=== PATIENT | male | born 1950 | race Caucasian/White ===

== ENCOUNTER 2017-09-05 15:52 | Inpatient (IN) | payer BC ==
--- NOTE | 2017-09-05 16:53 | RAD ---
INDICATION: Difficulty breathing COMPARISON: Chest x-ray February 04, 2016 TECHNIQUE: Single AP portable view of the chest was obtained. FINDINGS: Image quality is compromised due to the relative inferiority of a portable chest x-ray. There is a left upper chest cardiac pacemaker with a single lead overlying the heart. The heart and mediastinum exhibit normal size and contour. The lungs are grossly clear. There is no evidence of a large pleural effusion. Visualized bones are normal for the patient's age. IMPRESSION: No radiographic evidence for acute cardiopulmonary abnormality on this portable chest x-ray.
[2017-09-05 17:05] LABS: ABS Basophils 0 10^3/ul (0-0.2); ABS Eosinophils 0.1 10^3/ul (0-0.6); ABS Lymphocytes 1.3 10^3/ul (1.0-4.8); ABS Monocytes 0.7 10^3/ul (0-0.8); ABS Neutrophils 5.7 10^3/ul (1.5-7.7); ABS Nucleated RBC 0 10^3/ul; Eosinophil % 0.9 % (0-6); Hematocrit 39 % (42-52); Hemoglobin 13.4 g/dl (14.0-18.0); Lymphocyte % 16.8 % (25-47); Mean Corpuscular HGB Conc 34 g/dl (31-36); Mean Corpuscular Hemoglobin 33 pg (27-31); Mean Corpuscular Volume 96 fL (80-94); Mean Platelet Volume 9.8 um3 (7.4-10.4); Nucleated Red Blood Cells % 0; Platelet Count 165 10^3/ul (150-450); Red Blood Count 4.06 10^6/ul (4.00-5.40); Red Cell Distribution Width 13 % (10.5-15); White Blood Count 7.8 10^3/ul (3.5-10.8)
[2017-09-05 17:28] LABS: EGFR Non-African American 66.4 (>60)
[2017-09-05 17:34] LABS: INR 0.99 (0.77-1.02)
[2017-09-05] MEDS ORDERED: NS 0.9% 1000 ML* 1,000 ML IV ONE (18:13)
[2017-09-05] MEDS ORDERED: Nitroglycerin TAB 0.4 MG* 0.4 MG TAB SL ONE (18:13)
[2017-09-05] MEDS ORDERED: Aspirin 81 mg CHEW TAB* 81 MG TAB.CHEW PO ONE (18:14)
[2017-09-05] MEDS ORDERED: Magnesium Hydroxide LIQ* 30 ML UDC PO PRN (18:38)
[2017-09-05] MEDS ORDERED: Acetaminophen TAB* 325 MG PO PRN (18:38)
[2017-09-05] MEDS ORDERED: Morphine VIAL* 4 MG/ML VIAL (1 ml vial) IV PRN (18:38)
[2017-09-05] MEDS ORDERED: Ondansetron INJ* 2 MG/ML VIAL IV PRN (18:38)
[2017-09-05] MEDS ORDERED: Al Hydrox/Mg Hydrox/Simet LIQ* 30 ML UDC PO PRN (18:38)
[2017-09-05] MEDS ORDERED: Nitroglycerin TAB 0.4 MG* 0.4 MG TAB SL PRN (18:45)
--- NOTE | 2017-09-05 19:48 | ED ---
Fátima Pate Rebecca, scribed for Eli Arevalo MD on 09/05/17 at 1624 . Complex/Multi-Sys Presentation - HPI Summary HPI Summary: Pt is a 67 y/o M BIBA from home who presents to ED with a CC of generalized weakness and dizziness described as feeling near syncopal. Reports that yesterday he was able to mow the lawn without any problems and that he was able to iron shirts and eat lunch as usual. Sx began today when standing up after typing on the computer. Additionally c/o dry mouth, lightheadedness, intermittent bilateral posterior bilateral thigh pain and CP. CP has been intermittent for a few weeks, located in the left anterior chest. Pain is characterized as dull and currently moderate ranked 5-6/10, described as pain you might associate after doing pushups and not deep. LE pain has been intermittent since August 19 (17 days ago) and is present when standing for too long and after walking, but not while walking. Has not mentioned the LE pain to any doctors. Denies SOB. Today, he did not feel the defibrillator going off. PMHx UT (2011) - currently symptoms do not feel like his UT that episode had sharp pain. PSHx cardiac ablation on 07/04/17 for V tach, done at [facility] and he has not had V tach since then per pt. [employer] Development Team Lead is Dr. Allred, last seen on 07/23/17 and he is not on a blood thinner. Vital signs while in room for examination are: HR of 59 bpm, O2 saturation 100 on RA, respiratory rate of 19 and BP of 166/92. - History Of Current Complaint Chief Complaint: EDChestPainROMI Time Seen by Provider: 09/05/17 16:04 Hx Obtained From: Patient Onset/Duration: Gradual Onset, Lasting Hours, Still Present Timing: Intermittent, Lasting:, Minutes Severity Currently: Moderate - 5-6/10 Severity Initially: Moderate Location: Pain At: - Chest and bilateral posterior thigh Character: Dull Aggravating Factor(s): LE pain - standing for extended periods, after walking Alleviating Factor(s): Nothing Associated Signs And Symptoms: Positive: Weakness - Generalized, Chest Pain - Intermittent, Other - Dizziness (near syncopal), dry mouth, lightheadedness. Negative: SOB Related History: Other - cardiac ablation 07/04/17 - Allergies/Home Medications Allergies/Adverse Reactions: Allergies Allergy/AdvReac Type Severity Reaction Status Date / Time No Known Allergies Allergy Verified 09/12/14 21:09 Home Medications: Home Medications Aspirin EC TAB* [Ecotrin EC Low Dose 81 MG*] 81 mg PO DAILY 09/05/17 [History Confirmed 09/05/17] Nitroglycerin TAB 0.4 MG* 0.4 mg SL Q5M PRN 09/05/17 [History Confirmed 09/05/17 ] PMH/Surg Hx/FS Hx/Imm Hx Previously Healthy: No Endocrine/Hematology History: Denies: Hx Anticoagulant Therapy, Hx Blood Transfusions, Hx Diabetes, Hx Anemia Cardiovascular History: Reports: Hx Auto Implanted Cardiovert Defib - ICD 2ND TO V-TACH, Hx Coronary Artery Disease, Hx Hypercholesterolemia, Hx Hypertension , Hx Myocardial Infarction, Hx Pacemaker/ICD, Hx Syncope, Other Cardiovascular Problems/Disorders - ERECTILE DYSFUNCTION Denies: Hx Angina, Hx Angioplasty, Hx Cardiac Arrest, Hx Cardiomegaly, Hx Congestive Heart Failure, Hx Valvular Heart Disease Respiratory History: Reports: Hx Pneumonia - ONCE Denies: Hx Asthma, Hx Chronic Obstructive Pulmonary Disease (COPD) GI History: Reports: Hx Irritable Bowel Denies: Other GI Disorders History: Reports: Hx Benign Prostatic Hyperplasia, Hx Kidney Stones - 2-3 times, last time 2008 Musculoskeletal History: Reports: Hx Tendonitis - wrists, arms at times painful Sensory History: Reports: Hx Contacts or Glasses Opthamlomology History: Reports: Hx Contacts or Glasses Neurological History: Denies: Other Neuro Impairments/Disorders Psychiatric History: Reports: Hx Anxiety Denies: Hx Inpatient Treatment, Hx Suicide Attempt, Hx of Violent Episodes Against Others, Hx Substance Abuse - Cancer History Cancer Type, Location and Year: basal cell ca - Surgical History Surgery Procedure, Year, and Place: Bone tumor removed left pelvis- benign 1972. [place] 2011[place] [facility] [place] [facility] Hx Anesthesia Reactions: No Infectious Disease History: No Infectious Disease History: Denies: Traveled Outside the [place] in Last 30 Days - Family History Known Family History: Positive: Cardiac Disease, Other - Dementia (mother) - Social History Alcohol Use: None Substance Use Type: Reports: None Hx Tobacco Use: Yes Smoking Status (MU): Former Smoker Review of Systems Positive: Other - Generalized weakness Positive: Other - Dry mouth Positive: Chest Pain - Intermittent Respiratory: Negative Gastrointestinal: Negative Positive: Other - Intermittent bilateral posterior thigh pain Skin: Negative Neurological: Other - Dizziness (near syncopal), lightheadedness Psychological: Normal All Other Systems Reviewed And Are Negative: Yes Physical Exam - Summary Physical Exam Summary: Appearance: Ill-appearing, moderate pain distress, well-nourished,bradycardic Skin: Warm, color reflects adequate perfusion, dry Head: Normal Head/Face inspection, atraumatic Eyes: Conjunctiva clear, PERRL, EOMI, no nystagmus ENT: Normal inspection, oral mucosa dry Neck: Supple, no nodes, no JVD Respiratory: Lungs clear, normal breath sounds, no respiratory distress Cardio: bradycardic, No murmur, pulses normal, brisk capillary refill Abdomen: Soft, nontender Bowel sounds: Present Musculoskeletal: Strength Intact/ROM intact, no calf tenderness, no edema. Psychological: Normal Neuro: Alert, muscle tone normal, no focal deficit Triage Information Reviewed: Yes Vital Signs On Initial Exam: Initial Vitals Temp Pulse Resp BP Pulse Ox 98.9 F 58 16 166/92 99 09/05/17 16:02 09/05/17 16:02 09/05/17 16:02 09/05/17 16:02 09/05/17 16:02 Vital Signs Reviewed: Yes Diagnostics - Vital Signs Vital Signs Temp Pulse Resp BP Pulse Ox 09/05/17 16:02 98.9 F 58 16 166/92 99 - Laboratory Result Diagrams: 09/06/17 05:09 09/06/17 05:09 Lab Statement: Any lab studies that have been ordered have been reviewed, and results considered in the medical decision making process. - Radiology CXR Xray Interpretation: No Acute Changes - No radiographic evidence for acute cardiopulmonary abnormality on this portable chest x-ray. ED physician reviewed this report. Radiology Interpretation Completed By: Radiologist - EKG 1614 Cardiac Rate: Bradycardia - 55 bpm EKG Rhythm: Sinus Bradycardia ST Segment: Non-Specific Ectopy: None EKG Interpretation: Nl AVIVCT, nl QTC, left axis -34, Q waves in III and aVF, no acute changes 1804 Cardiac Rate: Bradycardia - 50 bpm EKG Rhythm: Sinus Bradycardia ST Segment: Non-Specific Ectopy: None EKG Interpretation: Nl AVIVCT, nl QTC, neg axis (-30), Q waves in leads II and aVF EKG Comparison: No Significant Change - No change from prior taken this date at 1614 Re-Evaluation - Re-Evaluation First Eval Re-Evaluation Time: 18:06 Change: Worse Comment: Nurse reports that his HR is in the 40s. Second Eval Re-Evaluation Time: 18:08 Change: Worse Comment: Reports CP between 5-6/10, closer to 6/10, slightly more than it was before. Discussed admission which the pt agrees to. Will give 324 mg ASA. Vital signs while in the room are: HR of 55 bpm, O2 saturation of 98 on RA, respiratory rate of 16 and BP of 123/79. Answered questions presented by the sister of his . Complex Multi-Symp Course/Dx Course Of Treatment: Pt with hx inferior wall UT 2011, s/p stents, s/p ICD for v tach, s/p ablation 07/04/17 presents with chest pain, weakness, dizziness. In ED pt is bradycardic into the 40's (is on sotalol at home) and initial troponin is zero. Due to pt's intermittent chest pain and cardiac risk factors including prior UT and V tach, he is admitted for observation for further evaluation. Sagrario Diaz is in with the pt at 1823 and states to hold the ASA. Pt declined the NTG. - Diagnoses Differential Diagnoses/HQI/PQRI: Cardiac Ischemia, Metabolic Abnormality Provider Diagnoses: Chest pain, Generalized weakness, Bilateral leg pain - Physician Notifications Discussed Care Of Patient With: Jessica Otero Time Discussed With Above Provider: 17:55 Instructed by Provider To: Other - Accepts pt for admission. Discussed care of pt with Dr. Jamison at 1910 who says that they will consult, advised no change in treatment and monitoring. Discharge - Sign-Out/Discharge Documenting (check all that apply): Discharge/Admit/Transfer - Admit - Discharge Plan Condition: Good Disposition: ADMITTED TO [facility] - Billing Disposition and Condition Condition: GOOD Disposition: Admitted to [facility] The documentation as recorded by the Fátima cornelius Rebecca accurately reflects the service I personally performed and the decisions made by , Eli Arevalo MD.
[2017-09-05] MEDS: Docusate CAP* 100 MG PO SCH (21:40)
[2017-09-05] MEDS: Heparin VIAL(*) 5000 UNITS/ML VIAL (FIVE THOUSAND) SUBCUT SCH (21:40)
[2017-09-05] MEDS: Atorvastatin* 40 MG TAB PO SCH (21:40)
[2017-09-05] MEDS: NS 0.9% 1000 ML* 1,000 ML IV SCH (22:00)
[2017-09-05 23:09] LABS: Urine Appearance Clear; Urine Blood Negative (Negative); Urine Color Yellow; Urine Ketones Trace (Negative); Urine Protein Negative (Negative); Urine Specific Gravity 1.032 (1.010-1.030); Urine Urobilinogen Negative (Negative)
[2017-09-05] MEDS: Mirtazapine TAB* 15 MG PO PRN (23:15)
[2017-09-05] MEDS: Zolpidem TAB* 10 MG PO PRN (23:16)
--- NOTE | 2017-09-06 03:48 | HP ---
CC: Dr. Gonzalez; Dr. Allred * ADMISSION HISTORY AND PHYSICAL: DATE OF ADMISSION: 09/05/17 PATIENT OF: Jessica Otero DO * (DICTATED BY DERRICK SARABIA) PRIMARY CARE PHYSICIAN: Dr. Gonzalez. PRIMARY TETRYL WRINGER OPERATOR: Dr. Nathanael Allred. CHIEF COMPLAINT: Chest pain. HISTORY OF PRESENT ILLNESS: Mr. Luong is a pleasant 67-year-old gentleman with quite significant past medical history significant for coronary artery disease with a history of OH, angioplasty with stent placement, as well as history of ventricular tachycardia for which he had recent ablation in June of this year. The patient also carries a history of hypertension and hyperlipidemia, who reports that since he had his cardiac ablation at [facility] in June of this year , he intermittently feels some chest tightness. Today, he was pushing a gravel using a shovel in his yard when he developed central mid sternal chest pain radiating to his outer chest. He felt weak and nauseated as well, but denies any palpitation, difficulty breathing, syncope, or diaphoresis. He presented to the emergency room and he had laboratory workup that revealed normal blood count as well as normal chemistry with the exception of slightly elevated BNP; however, his troponin was 0, CK-MB was 2.8, TSH and thyroid studies were normal. He had a D-dimer as well that was normal. Chest x-ray revealing no acute changes and had an EKG that revealed sinus bradycardia; however, there were no significant ST changes. The patient continued to have intermittent chest pain. He was given full dose of aspirin by his [id number] when pain seemed to be worse around 2 o'clock this afternoon. At the time of admission, his pain has significantly improved and he continue to deny any other associated symptoms. Given his worsening intermittent chest pain with his known history of coronary artery disease with previous MIs, we were asked to see the patient for evaluation and to consider admission for observation in telemetry. PAST MEDICAL HISTORY: Significant for coronary artery disease with history of angiography and stent placement. The patient had his last stress test done in January of 2016 that was intermediate risk and he was discharged home after a brief hospital stay. He was recently seen in the office by Dr. Allred after his ablation and has been otherwise in his usual state of health. He also has a history of ventricular tachycardia, hypertension, and hyperlipidemia. PAST SURGICAL HISTORY: Significant for AICD placement. CURRENT MEDICATIONS: His medications at home include: 1. Aspirin 81 mg p.o. daily. 2. Lipitor 40 mg p.o. q.h.s. 3. Cozaar 50 mg p.o. daily. 4. Nadolol 5 mg p.o. daily. 5. Nitroglycerin 0.4 mg sublingual q.5 minutes as needed for chest pain. 6. Spironolactone p.o. daily. ALLERGIES: He has no known drug allergies. FAMILY HISTORY: Negative for early onset coronary artery disease or CVA. SOCIAL HISTORY: The patient is nonsmoker. Denies alcohol intake or illicit drug use. 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 His is healthcare proxy carrier and he is a full code. REVIEW OF SYSTEMS: See HPI. Otherwise, 14 points review of systems were reviewed and were otherwise negative. PHYSICAL EXAMINATION GENERAL: He is a pleasant, healthy-appearing upper middle-aged gentleman, in no acute distress or discomfort at the time of admission. VITAL SIGNS: Revealed heart rate of 59, blood pressure of 145/90, temperature of 98.9, respirations of 20, and O2 sats of 99% on room air. HEENT: Head is normocephalic, atraumatic. Sclerae anicteric. PERRLA. EOMs intact. Oropharynx is pink and moist. NECK: Supple. Trachea midline. No cervical adenopathy, thyromegaly, or JVD. LUNGS: Clear to auscultation bilaterally. HEART: Appears to be slow rate; however, normal rhythm. No murmurs or gallops. BACK: With normal curvature and no CVA tenderness. ABDOMEN: Soft, nontender, and nondistended. No hernias, masses, or hepatosplenomegaly. EXTREMITIES: Without cyanosis, clubbing, or edema. NEUROLOGIC: Grossly intact. RECTAL: Exam deferred at this time. LABORATORY WORKUP: CBC with white count of 7000, hemoglobin of 13.4, hematocrit of 39, and platelets of 165. Chemistry with sodium of 141, potassium 4.3, chloride of 108, CO2 of 26, BUN of 20, and creatinine of 1.1. His glucose of 106. LFTs within normal limits. Troponin was 0 and BNP is 211. ACCESSORY DIAGNOSTIC DATA: Chest x-ray performed earlier with no acute cardiopulmonary findings and his EKG was done upon presentation and then few hours after revealing sinus bradycardia with rate of 50, some old Q waves at the inferior lead with questionable old inferior infarct. IMPRESSION: A 67-year-old gentleman with multiple coronary artery disease risk factors with history of myocardial infarction and stent placement as well as recent ablation due to ventricular tachycardia back in June of this year, who also has a history of hypertension, hyperlipidemia, who presented to the emergency room with intermittent chest tightness that appears to be more producible with movement other than exertion, who will be admitted to telemetry for observation and obtain troponin trends. ASSESSMENT AND PLAN: 1. Chest pain. The patient has multiple risk factors for coronary artery disease. We reviewed his record including last nuclear stress test in January of 2016. He will be admitted to telemetry for close observation overnight and to obtain troponin trends. He appears to be comfortable right now. He took full dose of aspirin and he will have nitroglycerin as needed for chest pain. He appears to be in sinus bradycardia and Dr. Foster in the emergency room is planning to contact Dr. Jamison for further recommendation; however, I will get a Cardiology consult also to determine if the patient needs to have a stress test over the weekend or as an outpatient if he continues to be stable tomorrow with normal troponin and no significant EKG changes. 2. Hypertension. We will continue his beta-lachelle, losartan and spironolactone. 3. Hyperlipidemia. I will check a lipid panel in the morning and we will keep him on his statin. 4. DVT prophylaxis: The patient is a high risk and we will cover with heparin subcu. 5. Code status: He is a full code and healthcare proxy is his . 6. Disposition: Admission to tele for observation and to rule out acute coronary syndrome, continue telemetry observation, aspirin, beta-lachelle, trending troponins, possible exercise non-stress test in the morning with supplemental oxygen and supportive care versus discharge and getting a stress test as an outpatient. TIME SPENT: I spent approximately 60 minutes admitting this patient with more than 50% spent obtaining history and physical exam. I discussed the case with Dr. Otero, who agreed to plans. DERRICK SARABIA [id number]/[facility] #: [id number] GERONIMO
[2017-09-06] MEDS: NS 0.9% 1000 ML* 1,000 ML IV SCH ×2 (04:45→18:03)
[2017-09-06 05:36] LABS: ABS Basophils 0 10^3/ul (0-0.2); ABS Eosinophils 0.1 10^3/ul (0-0.6); ABS Lymphocytes 1.9 10^3/ul (1.0-4.8); ABS Monocytes 0.7 10^3/ul (0-0.8); ABS Neutrophils 3.7 10^3/ul (1.5-7.7); ABS Nucleated RBC 0 10^3/ul; Eosinophil % 1.5 % (0-6); Hematocrit 34 % (42-52); Lymphocyte % 29.8 % (25-47); Mean Corpuscular HGB Conc 35 g/dl (31-36); Mean Corpuscular Hemoglobin 34 pg (27-31); Mean Corpuscular Volume 96 fL (80-94); Mean Platelet Volume 9.6 um3 (7.4-10.4); Nucleated Red Blood Cells % 0.1; Platelet Count 126 10^3/ul (150-450); Red Blood Count 3.57 10^6/ul (4.00-5.40); Red Cell Distribution Width 13 % (10.5-15); White Blood Count 6.4 10^3/ul (3.5-10.8)
[2017-09-06 06:01] LABS: EGFR Non-African American 77.7 (>60)
[2017-09-06] MEDS: Heparin VIAL(*) 5000 UNITS/ML VIAL (FIVE THOUSAND) SUBCUT SCH ×3 (06:02→21:38)
[2017-09-06] MEDS: Losartan TAB* 25 MG PO SCH (08:49)
[2017-09-06] MEDS: Aspirin EC TAB* 81 MG TAB.EC PO SCH (08:50)
[2017-09-06] MEDS: Docusate CAP* 100 MG PO SCH ×2 (08:50→21:38)
[2017-09-06] MEDS: Spironolactone TAB* 25 MG PO SCH (08:50)
[2017-09-06] MEDS ORDERED: Nadolol (NF) 20 MG TAB PO SCH (09:00)
--- NOTE | 2017-09-06 18:39 | PN ---
Subjective Date of Service: 09/06/17 Interval History: . Interviewed and examined patient at bedside; Discussed case with Dr. Jamison; Reviewed previous notes and radiology results; pt's episodes of chest pain/LH not caught by [facility] 2/2 specific settings; these were adjusted by Dr. Jamison. Now, question regarding CAD/ACS exists --> patient wishes to stay for stress test Friday. Family History: Unchanged from Admission Social History: Unchanged from Admission Past Medical History: Unchanged from Admission Objective Active Medications: . Acetaminophen (Tylenol Tab*) 650 mg PO Q4H PRN PRN Reason: FEVER/PAIN Al Hydrox/Mg Hydrox/Simethicone (Maalox Plus*) 30 ml PO Q6H PRN PRN Reason: INDIGESTION Aspirin (Aspirin Ec Tab*) 81 mg PO DAILY [facility] Last Admin: 09/06/17 08:50 Dose: 81 mg Atorvastatin Calcium (Lipitor*) 40 mg PO BEDTIME [facility] Last Admin: 09/05/17 21:40 Dose: 40 mg Docusate Sodium (Colace Cap*) 100 mg PO BID [facility] Last Admin: 09/06/17 08:50 Dose: 100 mg Heparin Sodium (Porcine) (Heparin Vial(*)) 5,000 units SUBCUT Q8HR [facility] Last Admin: 09/06/17 14:10 Dose: 5,000 units Sodium Chloride (Ns 0.9% 1000 Ml*) 1,000 mls @ 125 mls/hr IV PER RATE [facility] Last Admin: 09/06/17 18:03 Dose: 125 mls/hr Losartan Potassium (Cozaar Tab*) 50 mg PO DAILY [facility] Last Admin: 09/06/17 08:49 Dose: 50 mg Magnesium Hydroxide (Milk Of Magnesia Liq*) 30 ml PO Q4H PRN PRN Reason: CONSTIPATION Mirtazapine (Remeron Tab*) 30 mg PO BEDTIME PRN PRN Reason: ANXIETY/INSOMNIA Last Admin: 09/05/17 23:15 Dose: 30 mg Morphine Sulfate (Morphine Vial*) 2 mg IV Q2H PRN PRN Reason: PAIN Nadolol (Nadolol (Nf)) 5 mg PO DAILY [facility] Last Admin: 09/06/17 08:53 Dose: Not Given Nitroglycerin (Nitroglycerin Tab 0.4 Mg*) 0.4 mg SL Q5M PRN PRN Reason: PAIN - CHEST Ondansetron HCl (Zofran Inj*) 4 mg IV Q4H PRN PRN Reason: NAUSEA/VOMITING Spironolactone (Aldactone Tab*) 6.25 mg PO DAILY [facility] Last Admin: 09/06/17 08:50 Dose: 6.25 mg Zolpidem Tartrate (Ambien Tab*) 10 mg PO BEDTIME PRN PRN Reason: INSOMNIA Last Admin: 09/05/17 23:16 Dose: 10 mg . Vital Signs - 8 hr 09/06/17 09/06/17 11:22 15:13 Temperature 98.1 F 98.1 F Pulse Rate 48 47 Respiratory 16 20 Rate Blood Pressure 99/67 106/63 (mmHg) O2 Sat by Pulse 99 98 Oximetry Oxygen Devices in Use Now: None Appearance: NAD Eyes: No Scleral Icterus Ears/Nose/Mouth/Throat: NL Teeth, Lips, Gums Neck: NL Appearance and Movements; NL JVP Respiratory: Symmetrical Chest Expansion and Respiratory Effort, Clear to Auscultation Cardiovascular: NL Sounds; No Murmurs; No JVD Abdominal: NL Sounds; No Tenderness; No Distention Lymphatic: No Cervical Adenopathy Extremities: No Edema Skin: No Rash or Ulcers Neurological: Alert and Oriented x 3 Lines/Tubes/Other Access: Clean, Dry and Intact Peripheral IV Nutrition: Taking PO's Result Diagrams: 09/06/17 05:09 09/06/17 05:09 Assess/Plan/Problems-Billing . Assessment: 67 yo man with CAD & VT; s/p ablation 06/2017 [facility] -- now with episode of CP and unclear relationship to possible arrhythmia. PPM adjusted to capture events at lower rates. patient is borderline bradycardic. - Patient Problems (1) Near syncope Current Visit: No Status: Acute Priority: High (2) CAD (coronary artery disease) Current Visit: No Status: Chronic Priority: High Code(s): I25.10 - ATHSCL HEART DISEASE OF [place] CORONARY ARTERY W/O ANG PCTRS Comment: - s/p coronary stents by Dr. Allred - s/p NE - continue ASA, BB, HONORIO/ARB , statin - prn nitro - unclear if current episode is related to CAD --> stress test Friday. (3) HLD (hyperlipidemia) Current Visit: No Status: Chronic Priority: High Code(s): E78.5 - HYPERLIPIDEMIA, UNSPECIFIED Comment: - statin ongoing (4) HTN (hypertension) Current Visit: No Status: Chronic Priority: High Code(s): I10 - ESSENTIAL (PRIMARY) HYPERTENSION Comment: - BB, ARB (5) Myocardial infarction Current Visit: No Status: Inactive Priority: High Code(s): I21.3 - ST ELEVATION (STEMI) MYOCARDIAL INFARCTION OF [facility] SITE Comment: - known CAD; s/p stents - NE risk factor for subsequent arrythmia (scarring of ventricle)
[2017-09-06] MEDS: Atorvastatin* 40 MG TAB PO SCH (21:38)
[2017-09-06] MEDS: Mirtazapine TAB* 15 MG PO PRN (21:47)
[2017-09-06] MEDS: Zolpidem TAB* 10 MG PO PRN (21:47)
--- NOTE | 2017-09-07 00:24 | CONS ---
CC: Dr. Brian Gonzalez; Dr. Nathanael Allred; hospitalist service; Dr. Ba Camilo , pipeline systems operator at [facility] * CONSULTATION REPORT: DATE OF CONSULT: 09/06/17 HISTORY OF PRESENT ILLNESS: Mr. Luong is a 67-year-old gentleman with coronary artery disease with an old myocardial infarction with subsequent angioplasty and stenting. He has preserved LV systolic function, but presented with sustained ventricular tachycardia and has an AICD. Recently in June of 2017, he underwent VT ablation with Dr. Ba Camilo at [facility]. The patient states that the procedure was arduous for him with significant bruising in the right groin and then it had overall decreased his activity. Recently, he was doing more activity, shoveling some gravel in the yard and developed left-sided chest pain associated with weakness and nausea. He then was doing some computer work with his arms and again developed chest discomfort and when he got up to go to the house, felt very weak and he presented to the emergency department. In the emergency department, his EKG was noted to be bradycardiac and this is not new. His troponins had been unrevealing. Overnight on the monitor, he had a 14-beat run of monomorphic ventricular tachycardia as well as sinus rhythm alternating with ventricularly paced beats. PAST MEDICAL HISTORY: The patient has a past medical history of: 1. Coronary artery disease, 2011. 2. Ventricular tachycardia. 3. Mild dyslipidemia. 4. Hypogonadism. 5. Erectile dysfunction. 6. Colonic polyps. 7. Anxiety and depression. 8. Urolithiasis. 9. Hypotestosterone. 10. Nephrolithiasis. 11. Hypertension. PAST SURGICAL HISTORY: Includes: 1. AICD implantation. 2. 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 3. VT ablation, June 2017. MEDICATIONS: Outpatient medications included: 1. Nadolol 5 mg a day. 2. Cozaar 50 mg a day. 3. Spironolactone. 4. Aspirin 81 mg a day. 5. Lipitor 40 mg q.h.s. ALLERGIES: He has no known drug allergies. FAMILY HISTORY: Significant for his father had a history of hypertension and heart disease. His mother lived to the age of 92. 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 Lives with his . No history of alcohol abuse or recreational drug use. REVIEW OF SYSTEMS: Significant in that his right hip has been painful lately. His activity level has been diminished. He denies any known ingestions that would lead to increased ectopy. The chest pain he is experiencing now is different than the chest pain he had had with his original myocardial infarction. He denies recent fevers, chills, sweats, change in bowel or bladder. He has not used any over-the- counter medications. No recent change in sleep patterns. PHYSICAL EXAM: On exam, the patient is 6 feet, weighs 214 pounds with a BMI of 29. Vital Signs: Today, blood pressure 106/63, pulse 47, respiratory rate 20, oxygen on room air 98%. He is afebrile with 98.1. General Appearance: This is a moderately overweight older gentleman, lying flat, in no acute distress. Psychologically, pleasant and cooperative. Neurologically, awake, alert and oriented to person, place and time. Cranial nerves II through XII intact. Grossly normal sensory and motor function in the upper and lower extremities. Gait not checked. Skin: Warm, dry. AICD pocket in the subclavian fossa unremarkable. HEENT: Pupils were equal and round. Mucous membranes are moist. Neck obese, but no obvious lymphadenopathy, thyromegaly or increased JVP. No carotid bruits. Lungs are clear with good effort. No wheezes, rales or rhonchi. Coronary: S1, S2 regular without murmurs. Abdomen: Overweight, active bowel sounds, soft, nontender. No hepatosplenomegaly or masses. Lower extremities were free of edema. No ecchymosis and he has easily palpable posterior tibial pulses that are symmetrical and radial pulses that are symmetrical. DIAGNOSTIC STUDIES/LAB DATA: Labs: White count 6.4, hemoglobin 12, hematocrit 34, platelets 126. INR 0.99, PTT 31.6 and D-dimer less than 200. Sodium 142, potassium 3.4, chloride 113, bicarb 24, BUN 16, creatinine 0.96, glucose 107. Lactic acid on admission 1.1, calcium 9.6, magnesium 1.9. ALT of 14. Troponin #1, 0.00; troponin #2, 0.01; troponin #3, 0.01. BNP 211. TSH 1.68, thyroxine 7.36. Urinalysis unremarkable. A 12-lead ECG today shows sinus bradycardia at 50 beats a minute and QRS axis - 30, normal AV and IV conduction times. He has a QS complex in lead III and AVF consistent with an old inferior wall OH, but ST segments are unremarkable. Chest x-ray from 09/05/17 shows his AICD, otherwise no abnormalities. Defibrillator interrogation done by myself today confirmed the patient has a [employer] [id number] ICD, serial #[id number]. This is a single chamber device with kezia programing at low rate of 40 beats a minute. For tachy programing, he has 2 zones, one was a V-tach zone septal monitor only for detection rate 320 msec (approximately 160 beats a minute) and the VF zone to deliver therapy at 175 beats a minute or greater. The patient's device had not identified any tachy arrhythmias since June. SUMMARY: In summary, Rich Luong is a 67-year-old gentleman who suffered an inferior wall myocardial infarction in 2011. He presented with ventricular tachycardia and had post-events ventricular tachycardia with an AICD. More recently, the patient had ventricular tachycardia apparently at lower rates and per verbal communication with Dr. Allred, he walked into his office in V-tach. He underwent V-tach ablation in June. The patient now presents with chest discomfort and dizziness ambulating. On the floor, he had a 14-beat run of V-tach, it is not detected by his device as the device was set to detect events at quite high rates and the rate of the ventricular tachycardia was lower than the detection rate. The patient has never been tried on any antiarrhythmic other nadolol at anytime. He has sinus bradycardia. Regarding the ventricular tachycardia, options would include starting an antiarrhythmic, sotalol and propiophenone or more aggressive beta-blockade would likely lead to bradycardia and significant single chamber ventricular pacing, which would not be ideal even with the good ejection fraction. Amiodarone is suboptimal as the patient is relatively young age and would also lead to bradycardia as above. Other options that do not lower heart rates for medical management could include flecainide, which might be acceptable considering he has an AICD and has preserved ventricular function on recent nuclear ventriculograms and echos. However, this is typically not considered an ideal drug in the patient's with known atherosclerotic heart disease. Another option will be Tikosyn, which can be used to suppress ventricular dysrhythmias in addition to atrial dysrhythmias and again with an AICD backup might assist. Additional options would include retrial of ablation. The patient is also having chest pain and the chest pain and the dizziness may correlate with his dysrhythmias. I reprogrammed the device to lower monitor zone in the hopes that we can try to detect more of his ventricular tachyrhythmias and also try to correlate them with symptoms. Currently, he is programed to detect at a lower rate of 126 beats a minute and deliver therapy at a 171 beats a minute or higher. It might be optimal to lower that therapy level with ATP pacing lower as well, but this was not done by me today. With respect to the ventricular tachycardia and options, I discussed options of medical management and/or ablation with the patient in addition to reprograming. I discussed with him the option of being transferred to [facility] for a formal electrophysiology evaluation and I discussed options of increased medical management here. For the patient's chest pain and dizziness, he is aware that I have reprogrammed the device for improved detection ability. I recommended a stress test and I would like to do an exercise Myoview study, which cannot be done on the weekend. He is amenable to getting this done after the weekend. We discussed the potential for VT ablation and the patient is lairy of this. He said it was very long and difficult recovery from the first one and wants to think about this. For now, we will plan on having him ambulate on the floor and undergo updated stress test. Electrophysiology at [facility] was not available on-call over the weekend to discuss. Further recommendations will be made pending his response to the above measures and results of his stress test. Potential options for NSVT and dizziness: Antiarrhythmic agent. Potential upgrade to AV sequential ICD to allow for rate lowering antiarrhythmics. Redo ablation. [id number]/[facility] #: [id number] [facility]
[2017-09-07] MEDS: Heparin VIAL(*) 5000 UNITS/ML VIAL (FIVE THOUSAND) SUBCUT SCH ×3 (05:23→21:11)
[2017-09-07] MEDS: NS 0.9% 1000 ML* 1,000 ML IV SCH (05:50)
[2017-09-07] MEDS: Aspirin EC TAB* 81 MG TAB.EC PO SCH (08:55)
[2017-09-07] MEDS: Spironolactone TAB* 25 MG PO SCH (08:56)
[2017-09-07] MEDS: Losartan TAB* 25 MG PO SCH (08:56)
[2017-09-07] MEDS: Docusate CAP* 100 MG PO SCH ×2 (08:56→21:12)
[2017-09-07] MEDS ORDERED: Benzocaine/Menthol LOZ* 1 LOZENGE PO PRN (10:14)
--- NOTE | 2017-09-07 13:57 | PN ---
Subjective Date of Service: 09/07/17 - CC: chest discomfort, dysphagia Interval History: The patient denies any recurrence of the chest discomfort that brought him in. No recurrence of dizziness. + Dysphagia and nausea. No ambulating outside of room. Medications Active Medications: Acetaminophen (Tylenol Tab*) 650 mg PO Q4H PRN PRN Reason: FEVER/PAIN Al Hydrox/Mg Hydrox/Simethicone (Maalox Plus*) 30 ml PO Q6H PRN PRN Reason: INDIGESTION Last Admin: 09/07/17 13:09 Dose: 30 ml Aspirin (Aspirin Ec Tab*) 81 mg PO DAILY [facility] Last Admin: 09/07/17 08:55 Dose: 81 mg Atorvastatin Calcium (Lipitor*) 40 mg PO BEDTIME [facility] Last Admin: 09/06/17 21:38 Dose: 40 mg Docusate Sodium (Colace Cap*) 100 mg PO BID [facility] Last Admin: 09/07/17 08:56 Dose: 100 mg Heparin Sodium (Porcine) (Heparin Vial(*)) 5,000 units SUBCUT Q8HR [facility] Last Admin: 09/07/17 13:10 Dose: 5,000 units Sodium Chloride (Ns 0.9% 1000 Ml*) 1,000 mls @ 125 mls/hr IV PER RATE [facility] Last Admin: 09/07/17 05:50 Dose: 125 mls/hr Losartan Potassium (Cozaar Tab*) 50 mg PO DAILY [facility] Last Admin: 09/07/17 08:56 Dose: 50 mg Magnesium Hydroxide (Milk Of Magnesia Liq*) 30 ml PO Q4H PRN PRN Reason: CONSTIPATION Mirtazapine (Remeron Tab*) 30 mg PO BEDTIME PRN PRN Reason: ANXIETY/INSOMNIA Last Admin: 09/06/17 21:47 Dose: 30 mg Morphine Sulfate (Morphine Vial*) 2 mg IV Q2H PRN PRN Reason: PAIN Nitroglycerin (Nitroglycerin Tab 0.4 Mg*) 0.4 mg SL Q5M PRN PRN Reason: PAIN - CHEST Ondansetron HCl (Zofran Inj*) 4 mg IV Q4H PRN PRN Reason: NAUSEA/VOMITING Spironolactone (Aldactone Tab*) 6.25 mg PO DAILY [facility] Last Admin: 09/07/17 08:56 Dose: 6.25 mg Throat Lozenges (Chloraseptic Eliot*) 1 eliot PO Q3H PRN PRN Reason: SORE THROAT Last Admin: 09/07/17 11:18 Dose: 1 eliot Zolpidem Tartrate (Ambien Tab*) 10 mg PO BEDTIME PRN PRN Reason: INSOMNIA Last Admin: 09/06/17 21:47 Dose: 10 mg Objective Vital Signs: Temp Pulse Resp BP Pulse Ox 97.8 F 44 18 109/62 98 09/07/17 11:35 09/07/17 11:35 09/07/17 11:35 09/07/17 11:35 09/07/17 11:35 Oxygen Devices in Use Now: None Appearance: Centripitally overweight older male, lying 40 degrees, comfortable. Eyes: No Scleral Icterus, PERRLA Ears/Nose/Mouth/Throat: Clear Oropharnyx, Mucous Membranes Moist Neck: NL Appearance and Movements; NL JVP, Trachea Midline, No Thyroid Enlargement, Masses Respiratory: Symmetrical Chest Expansion and Respiratory Effort, Clear to Auscultation Cardiovascular: NL Sounds; No Murmurs; No JVD, RRR Abdominal: No Hepatosplenomegaly Extremities: No Edema, No Clubbing, Cyanosis Skin: No Rash or Ulcers Neurological: Alert and Oriented x 3, NL Muscle Strength and Tone - on gross exam. Lines/Tubes/Other Access: Clean, Dry and Intact Peripheral IV Laboratory Results: 09/06/17 05:09 09/06/17 05:09 INR (Anticoag Therapy) 0.99 (0.77-1.02) 09/05/17 16:51 APTT 31.6 seconds (26.0-36.3) 09/05/17 16:51 Total Bilirubin 0.50 mg/dL (0.2-1.0) 09/05/17 16:51 AST 16 U/L (13-39) 09/05/17 16:51 ALT 14 U/L (7-52) 09/05/17 16:51 Alkaline Phosphatase 44 U/L (34-104) 09/05/17 16:51 CK-MB (CK-2) 2.8 ng/mL (0.6-6.3) 09/05/17 16:51 B-Natriuretic Peptide 211 pg/mL (-100) H 09/05/17 16:51 Total Protein 6.5 g/dL (6.4-8.9) 09/05/17 16:51 Albumin 3.9 g/dL (3.2-5.2) 09/05/17 16:51 Globulin 2.6 g/dL (2-4) 09/05/17 16:51 Albumin/Globulin Ratio 1.5 (1-3) 09/05/17 16:51 TSH 1.68 mcIU/mL (0.34-5.60) 09/05/17 16:51 09/05/17 09/05/17 09/05/17 16:51 19:30 22:31 Troponin I 0.00 0.01 0.01 EKG Data: Sinus bradycardia with occasional junctional escape beats/isochronic dissociation, occasional V paced beats. Assessment/Plan 67 yo with old IWMI with stenting 2011, hx VT post stent to AICD and recent MM VT to VT ablation in June. The patient now presents with CP and dizziness/weakness. 14 beat run of VT noted yesterday, slower than programmed detection rate. CP: Stress myoview in AM, if needed convert to lexiscan, but I want to see if VT induced with exercise. VT: Monitor rate now lower, so should be able to document VT at home and correlate with symptoms. Antiarrhythmics never tried and pt has bradycardia, best options with low heart rate would be Flecainide and Tikosyn if EP agrees. VT ablation an option, patient reluctant now. Dr Quick not senior talent acquisition specialist this weekend. Bradycardia Option to upgrade to a dual chamber pacer defibrillator that would allow for antiarrhythmics with rate lowering properties such as sotalol. Dysphaghia: I defer to hospitalists, could be contributing to CP. I encouraged the patient to ambulate on the floor on the monitor.
[2017-09-07] MEDS: Atorvastatin* 40 MG TAB PO SCH (21:12)
[2017-09-07] MEDS: Mirtazapine TAB* 15 MG PO PRN (23:26)
[2017-09-07] MEDS: Zolpidem TAB* 10 MG PO PRN (23:26)
[2017-09-08] MEDS: Heparin VIAL(*) 5000 UNITS/ML VIAL (FIVE THOUSAND) SUBCUT SCH ×2 (05:54→13:16)
[2017-09-08] MEDS: Losartan TAB* 25 MG PO SCH (08:15)
[2017-09-08] MEDS: Spironolactone TAB* 25 MG PO SCH (08:15)
[2017-09-08] MEDS: Aspirin EC TAB* 81 MG TAB.EC PO SCH (08:15)
[2017-09-08] MEDS: Docusate CAP* 100 MG PO SCH (08:15)
--- NOTE | 2017-09-08 10:21 | RAD ---
Edited for charges. INDICATION: Chest pain, previous myocardial infarction. Previous angioplasty. COMPARISON: February 05, 2016 TECHNIQUE: 10.990 mCi of Tc-99m Myoview were administered IV. SPECT images of the heart were obtained. Later on the same day. Under the direction of Dr. Allred, an exercise stress test was performed. The patient achieved a peak heart rate of 143 bpm, 95 % of the age- predicted maximum. Subsequently, the patient was given an IV injection of 25.760 mCi Tc- 99m Myoview. SPECT images of the heart were obtained and a gated wall motion study was performed. FINDINGS: Gated wall motion images were obtained at stress and demonstrate hypokinesia at the apex lateral wall. The calculated left ventricular ejection fraction is 59 % at stress. Estimated LEFT ventricular end diastolic volume is 142 mL. TID 0.89. Diaphragmatic attenuation noted. Decreased perfusion at the apex and apical lateral wall segment at stress with only minimal equivocal reversal at rest. No compelling stress-induced ischemia evident. IMPRESSION: 1. Dilated LEFT ventricle with normal range estimated LEFT ventricular ejection fraction. 2. Small apical and apical lateral segment infarct with associated regional hypokinesia. No compelling stress-induced ischemia evident. ASSESSMENT: Low risk based on nuclear portion. Based on imaging criteria from ACC/AHA 2002 Guideline Update for the Management of Patients With Chronic Stable Angina Table 23. Noninvasive Risk Stratification. MTDD
[2017-09-08 15:40] VITALS: BP 123/70
== END 2017-09-08 19:05 | disposition home or self-care (01) | DRG 201 ==
LOC: ED 15:52 → MEDTELE 18:35 → OBSVTOIN 09-06 16:00
PROVIDERS: ADMIT Internal Medicine; ATTEND Internal Medicine
DX: I47.2 Ventricular tachycardia (principal); I25.10 Atherosclerotic heart disease of native coronary artery without angina pectoris; I11.9 Hypertensive heart disease without heart failure; E78.5 Hyperlipidemia, unspecified; E29.1 Testicular hypofunction; N52.9 Male erectile dysfunction, unspecified; K63.5 Polyp of colon; F41.9 Anxiety disorder, unspecified; F32.9 Major depressive disorder, single episode, unspecified; N20.9 Urinary calculus, unspecified; Z95.810 Presence of automatic (implantable) cardiac defibrillator; R07.9 Chest pain, unspecified; Z95.5 Presence of coronary angioplasty implant and graft; Z79.82 Long term (current) use of aspirin; Z79.899 Other long term (current) drug therapy; I25.2 Old myocardial infarction
CPT/HCPCS: 36415; 71045; 78452; 80048; 80053; 81003; 82550; 82553; 83605; 83735; 83880; 84436; 84443; 84484; 85025; 85379; 85610; 85730; 93005; 93017; 99283; A9270-GY; A9502; J1644

== ENCOUNTER 2018-05-20 19:08 | Inpatient (IN) | payer BC, OTHER ==
--- NOTE | 2018-05-20 19:53 | ED ---
Dizziness - HPI Summary HPI Summary: This patient is a 68 year old M brought in by ambulance to [facility] with a chief complaint of dizziness that began earlier today. Patient states that he felt his defibrillator go off and at this point the dizziness resolved. The patient rates the pain 0/10 in severity. Symptoms aggravated by nothing. Symptoms alleviated by nothing. Patient denies syncope. Patient states he has felt his defibrillator go off previously. Patient states he has a history of MO with stent and defibrillator placement. Patient states his device ([employer]) is new as of February,. - History Of Current Complaint Chief Complaint: EDDizziness Stated Complaint: HEART PROBLEM PER EMS Time Seen by Provider: 05/20/18 19:29 Hx Obtained From: Patient Onset/Duration: Resolved Timing: Constant Severity Initially: Mild Severity Currently: Mild Character: Dizzy Aggravating Factor(s): Nothing Alleviating Factor(s): Nothing Associated Signs And Symptoms: Positive: Other: - Negative syncope. - Allergies/Home Medications Allergies/Adverse Reactions: Allergies Allergy/AdvReac Type Severity Reaction Status Date / Time No Known Allergies Allergy Verified 05/20/18 19:20 Home Medications: Home Medications Carvedilol [Coreg] 25 mg PO BID 05/20/18 [History Confirmed 05/20/18] Hydrocodone/Acetaminophen [Hydrocodone/Acetaminophen 5-325 mg] 1 tab PO Q4HR PRN 05/20/18 [History Confirmed 05/20/18] Losartan TAB* [Cozaar TAB*] 100 mg PO DAILY 05/20/18 [History Confirmed 05/20/18 ] Mirtazapine 30 mg PO DAILY 05/20/18 [History Confirmed 05/20/18] Zolpidem TAB* [Ambien TAB*] 10 mg PO BEDTIME 05/20/18 [History Confirmed ] buPROPion HCl [Bupropion HCl ER] 100 mg PO DAILY 05/20/18 [History Confirmed 09/02] PMH/Surg Hx/FS Hx/Imm Hx Previously Healthy: No Endocrine/Hematology History: Denies: Hx Anticoagulant Therapy, Hx Blood Transfusions, Hx Diabetes, Hx Anemia Cardiovascular History: Reports: Hx Auto Implanted Cardiovert Defib - ICD 2ND TO V-TACH, Hx Coronary Artery Disease, Hx Hypercholesterolemia, Hx Hypertension , Hx Myocardial Infarction, Hx Pacemaker/ICD, Hx Syncope, Other Cardiovascular Problems/Disorders - ERECTILE DYSFUNCTION Denies: Hx Angina, Hx Angioplasty, Hx Cardiac Arrest, Hx Cardiomegaly, Hx Congestive Heart Failure, Hx Valvular Heart Disease Respiratory History: Reports: Hx Pneumonia - ONCE Denies: Hx Asthma, Hx Chronic Obstructive Pulmonary Disease (COPD) GI History: Reports: Hx Irritable Bowel Denies: Other GI Disorders History: Reports: Hx Benign Prostatic Hyperplasia, Hx Kidney Stones - 2-3 times, last time 2008, Other Problems/Disorders - slightly enlarged prostate Musculoskeletal History: Reports: Hx Tendonitis - wrists, arms at times painful , Other Musculoskeletal History - "generalized aches and pains of aging" Sensory History: Reports: Hx Contacts or Glasses Denies: Hx Hearing Aid Opthamlomology History: Reports: Hx Contacts or Glasses Neurological History: Denies: Other Neuro Impairments/Disorders Psychiatric History: Reports: Hx Anxiety Denies: Hx Inpatient Treatment, Hx Suicide Attempt, Hx of Violent Episodes Against Others, Hx Substance Abuse - Cancer History Cancer Type, Location and Year: basal cell ca - Surgical History Surgery Procedure, Year, and Place: Bone tumor removed left pelvis- benign 1972. Stentx2 2011-by Dr Allred @ [facility] [place]. ICD placed 2011 @ [facility] [place], NEW DEFIBRILLATOR PLACED 02/27/2018- [facility] Hx Anesthesia Reactions: No Infectious Disease History: No Infectious Disease History: Denies: Traveled Outside the [place] in Last 30 Days - Family History Known Family History: Positive: Cardiac Disease, Other - Dementia (mother) - Social History Occupation: Employed Full-time Lives: With Family Alcohol Use: None Hx Substance Use: No Substance Use Type: Reports: None Hx Tobacco Use: Yes Smoking Status (MU): Former Smoker Review of Systems Negative: Fever Neurological: Other - Positive dizziness Negative: Syncope All Other Systems Reviewed And Are Negative: Yes Physical Exam - Summary Physical Exam Summary: VITAL SIGNS: Reviewed. GENERAL: Patient is a well-developed and nourished male who is lying comfortable in the stretcher. Patient is not in any acute respiratory distress. HEAD AND FACE: No signs of trauma. No ecchymosis, hematomas or skull depressions. No sinus tenderness. EYES: PERRLA, EOMI x 2, No injected conjunctiva, no nystagmus. EARS: Hearing grossly intact. Ear canals and tympanic membranes are within normal limits. MOUTH: Oropharynx within normal limits. NECK: Supple, trachea is midline, no adenopathy, no JVD, no carotid bruit, no c- spine tenderness, neck with full ROM. CHEST: Symmetric, no tenderness at palpation LUNGS: Clear to auscultation bilaterally. No wheezing or crackles. CVS: Regular rate and rhythm, S1 and S2 present, no murmurs or gallops appreciated. ABDOMEN: Soft, non-tender. No signs of distention. No rebound no guarding, and no masses palpated. Bowel sounds are normal. EXTREMITIES: FROM in all major joints, no edema, no cyanosis or clubbing. NEURO: Alert and oriented x 3. No acute neurological deficits. Speech is normal and follows commands. SKIN: Dry and warm PSYCH: Anxious Triage Information Reviewed: Yes Vital Signs On Initial Exam: Initial Vitals Pulse Resp BP Pulse Ox 61 21 149/88 98 05/20/18 19:13 05/20/18 19:13 05/20/18 19:13 05/20/18 19:13 Vital Signs Reviewed: Yes Diagnostics - Vital Signs Vital Signs Temp Pulse Resp BP Pulse Ox 05/20/18 19:30 60 18 146/88 99 05/20/18 19:16 99.2 F 67 16 149/88 98 05/20/18 19:15 64 15 157/91 97 05/20/18 19:13 61 21 149/88 98 - Laboratory Result Diagrams: 05/20/18 20:07 05/20/18 20:07 Lab Statement: Any lab studies that have been ordered have been reviewed, and results considered in the medical decision making process. - EKG 1923 Cardiac Rate: NL EKG Rhythm: Sinus Rhythm - 65 BPM Summary of EKG Findings: An EKG taken at 1923 reveals nml sinus rhythm at 65 BPM with Q waves in the inferior leads. Dizzy Course/Dx - Course Course Of Treatment: This patient is a 68 year old M brought in by ambulance to [facility] with a chief complaint of dizziness that began earlier today. Patient states that he felt his defibrillator go off and at this point the dizziness resolved. Physical Exam Findings: Anxious. An EKG taken at 1923 reveals nml sinus rhythm at 65 BPM with Q waves in the inferior leads. Bloodwork obtained. Consult with Dr. Jamison (cardiology) at 1957. She recommended the patient be admitted for observation. Consult with Dr. Che (hospitalist) at 2041. She agrees to admit the patient for further evaluation. The patient is agreeable with this plan. - Diagnoses Provider Diagnoses: ICD (implantable cardioverter-defibrillator) discharge, Dizziness - Provider Notifications Discussed Care Of Patient With: Pati Jamison Time Discussed With Above Provider: 19:58 Instructed by Provider To: Other - Consult with Dr. Jamison (cardiology) at 1957. She recommended the patient be admitted for observation. Consult with Dr. Che (hospitalist) at 2041. She agrees to admit the patient for further evaluation. Discharge - Sign-Out/Discharge Documenting (check all that apply): Patient Departure - [place] [facility] [place] Received Moderate/Deep Sedation with Procedure: No - Discharge Plan Condition: Stable Disposition: ADMITTED TO [facility] Referrals: Brian Gonzalez MD [Primary Care Provider] - - Attestation Statements Document Initiated by Scribe: Yes Documenting Scribe: Shaye Nye Provider For Whom Scribe is Documenting (Include Credential): Dr. Maddie Ignacio MD Scribe Attestation: I, Shaye Nye, scribed for Dr. Maddie Ignacio MD on 05/20/18 at 2051. Status of Scribe Document: Ready
[2018-05-20 20:16] LABS: ABS Basophils 0.1 10^3/ul (0-0.2); ABS Eosinophils 0.1 10^3/ul (0-0.6); ABS Lymphocytes 1.6 10^3/ul (1.0-4.8); ABS Monocytes 0.8 10^3/ul (0-0.8); ABS Neutrophils 6.9 10^3/ul (1.5-7.7); ABS Nucleated RBC 0 10^3/ul; Eosinophil % 0.8 %; Hematocrit 40 % (42-52); Hemoglobin 13.5 g/dl (14.0-18.0); Lymphocyte % 17.1 %; Mean Corpuscular HGB Conc 34 g/dl (31-36); Mean Corpuscular Hemoglobin 32 pg (27-31); Mean Corpuscular Volume 95 fL (80-94); Mean Platelet Volume 9.1 fL (7.4-10.4); Nucleated Red Blood Cells % 0; Platelet Count 165 10^3/ul (150-450); Red Blood Count 4.23 10^6/ul (4.00-5.40); Red Cell Distribution Width 13 % (10.5-15); White Blood Count 9.4 10^3/ul (3.5-10.8)
[2018-05-20 20:28] LABS: Activated Partial Thrombo Time 29.6 seconds (26.0-36.3); INR 1.04 (0.77-1.02)
[2018-05-20 20:34] LABS: Albumin 3.9 g/dL (3.2-5.2); Albumin/Globulin Ratio 1.6 (1-3); BUN/Creatinine Ratio 17.1 (8-20); Calcium 9.3 mg/dL (8.6-10.3); EGFR African American 66.6 (>60); EGFR Non-African American 55.1 (>60); Globulin 2.4 g/dL (2-4); Potassium 4.7 mmol/L (3.5-5.0); Total Bilirubin 0.5 mg/dL (0.2-1.0); Total Protein 6.3 g/dL (6.4-8.9)
[2018-05-20 20:36] LABS: Troponin I 0.01 ng/mL (<0.04)
[2018-05-20 20:54] LABS: TSH (Thyroid Stimulating Horm) 1.82 mcIU/mL (0.34-5.60)
[2018-05-20] MEDS ORDERED: Acetaminophen TAB* 325 MG PO PRN (21:49)
[2018-05-20] MEDS ORDERED: Ondansetron INJ* 2 MG/ML VIAL IV PRN (21:49)
[2018-05-20] MEDS ORDERED: Nitroglycerin TAB 0.4 MG* 0.4 MG TAB SL PRN (21:51)
[2018-05-20] MEDS ORDERED: HYDROcodone/ACETAMIN 5-325 MG* 1 TAB PO PRN (21:51)
[2018-05-20] MEDS ORDERED: NS 0.9% 1000 ML** 1,000 ML IV SCH (23:00)
[2018-05-20 23:30] LABS: Troponin I 0.04 ng/mL (<0.04)
[2018-05-21] MEDS: Enoxaparin(*) 40 MG/0.4 ML SYR SUBCUT SCH ×2 (00:20→22:06)
[2018-05-21] MEDS: Zolpidem TAB* 10 MG PO SCH ×2 (01:16→20:14)
[2018-05-21] MEDS: Mirtazapine TAB* 15 MG PO SCH ×2 (01:16→20:12)
--- NOTE | 2018-05-21 02:09 | HP ---
CC: Dr. Brian Gonzalez; Dr. Abhi Morrison * HISTORY AND PHYSICAL: DATE OF ADMISSION: 05/20/18 PRIMARY CARE PROVIDER: Dr. Brian Gonzalez. SUBWAY TRAIN OPERATOR: Dr. Abhi Mrorison. ATTENDING PHYSICIAN: Dr. Katie Che * (dictated by Janie Vo NP). CHIEF COMPLAINT: Dizziness. HISTORY OF PRESENT ILLNESS: Mr. Luong is a 68-year-old male with a past medical history of CAD with previous UT, V-tach, status post ICD and ablation, hypertension, hyperlipidemia, and depression, who presented to the emergency room today with complaints of dizziness, reportedly the patient had been feeling in his normal state of health. He went outside to bring some garbage outside and when he got back to the door, he suddenly felt very dizzy and as though he was going to pass out. He reports a "funny feeling" in his head. He got inside and sat down and he felt his defibrillator fire. He believes that the episode of dizziness lasted approximately 6 seconds before his defibrillator fired. He reports only feeling his defibrillator fire one time in the past which was during in ablation in 2018. He reports that he was under some degree of anesthesia though he did feel the ICD fire. He did have his ICD replaced in February 2018 and the patient reports that at that point it was replaced with an ICD pacemaker. The patient denies any chest pain. No shortness of breath, nausea, or vomiting. No changes in vision or neurological deficits. At this point, he reports feeling well and offers no complaints though he is quite concerned about his ICD firing and is concerned that he will need to undergo another ablation. In the emergency room, the patient had lab work which was essentially unremarkable except for a mildly elevated creatinine. He had an EKG which showed normal sinus rhythm. Because of the concern for an arrhythmia, the ED physician contacted Dr. Jamison and he reported that she advised that the patient be observed overnight. Because of the need for observation, the hospitalist service was asked to evaluate for admission. PAST MEDICAL HISTORY: 1. Coronary artery disease, UT and cardiac catheterization in 2011 with three stents placed. 2. Ventricular tachycardia, status post ICD placement and ablation. 3. Hypertension. 4. Hyperlipidemia. 5. GERD. 6. Anxiety. 7. Depression. 8. BPH. PAST SURGICAL HISTORY: 1. Osteosarcoma excision in 1972. 2. ICD placement in 2011, replaced with an ICD pacer in February 2018. 3. Ablation in June 2017. 4. Cardiac catheterization in 2011 with 3 stents placed. MEDICATIONS: Home medications: 1. Aspirin 81 mg p.o. daily. 2. Bupropion 100 mg p.o. daily. 3. Carvedilol 25 mg p.o. b.i.d. 4. Hydrocodone/acetaminophen 5/325 one tab p.o. q.4 hours p.r.n. pain. 5. Losartan 100 mg p.o. daily. 6. Mirtazapine 30 mg p.o. daily. 7. Nitroglycerin 0.4 mg sublingual q.5 minutes p.r.n. chest pain. 8. Spironolactone 6.25 mg p.o. daily. 9. Ambien 10 mg p.o. at bedtime. ALLERGIES: No known drug allergies. FAMILY HISTORY: The patient's mother at the age of 90 due to complications from dementia. His father at the age of 70, he believes from heart disease. SOCIAL HISTORY: The patient reports a distant history of tobacco use. He reports rare alcohol use and denies any recreational drug use. He is still employed as a professor at [employer]. He lives at home with his , Andria, who will be his surrogate decision maker in the event he is unable to make his own decisions. REVIEW OF SYSTEMS: An 11-point review of systems was performed and all the pertinent positive and negative findings are in the HPI. All other systems are negative. PHYSICAL EXAMINATION GENERAL: Mr. Luong is a well-developed, well-nourished, middle-aged male, sitting up in bed, in no acute distress. He appears his stated age. VITAL SIGNS: Temp 99.2, heart rate 63, respiratory rate 21, oxygen saturation 96 % on room air, blood pressure 131/87. HEENT: Head is atraumatic, normocephalic. Visual hamlin are grossly intact. Pupils are equal, round, and reactive to light and accommodation. Extraocular movements intact. Oral mucous membranes moist and without lesions. NECK: Full range of motion. Trachea midline. RESPIRATORY: Symmetrical chest expansion. No chest wall deformities. Lungs clear to auscultation throughout. CARDIOVASCULAR: Regular rate and rhythm. S1, S2 present. No murmurs, rubs, or gallops. No JVD. ABDOMEN: Soft, nontender to palpation. Bowel sounds normoactive throughout. EXTREMITIES: Skin warm and smooth bilaterally. No edema. No clubbing or cyanosis. NEUROLOGIC: Awake, alert, and oriented x4. Cranial nerves II through XII grossly intact. Moves all extremities. SKIN: Grossly intact without lesions. DIAGNOSTIC STUDIES/LABORATORY DATA: WBC 9.4, RBC 4.23, hemoglobin 13.5, hematocrit 40, platelets 165. INR 1.04. Sodium 143, potassium 4.7, chloride 111, carbon dioxide 29. BUN 22, creatinine 1.29. Glucose 122. Magnesium 2.0. Troponin 0.01. EKG showed normal sinus rhythm with a rate of 65. QTc 425. Q-waves present in inferior leads. This is consistent with previous EKGs on file. There are no acute changes. ASSESSMENT AND PLAN: Mr. Luong is a 68-year-old male with past medical history of coronary artery disease, myocardial infarction, ventricular tachycardia, status post ablation and defibrillator placement, hypertension, hyperlipidemia, anxiety, and depression, who presents to the emergency room today with an episode of dizziness and his ICD firing. The patient will be admitted observation for: 1. Dizziness. I suspected that this dizziness is secondary to ventricular tachycardia. Hence why the patient felt the defibrillator fire. He reports only feeling his defibrillator fire once in the past during his ablation in June 2017, and he recently had his defibrillator replaced in February 2018, with a defibrillator pacemaker. He does not have any chest pain or cardiac symptoms at this point and his troponin is negative. The patient is quite concerned that he will need another ablation. At this point, we will monitor the patient overnight for any arrhythmias on telemetry. I will check 2 additional troponins and EKGs when these troponins are drawn, though, I do anticipate that his troponin may bump slightly due to the suspect of ventricular tachycardia. The ED physician reports that the patient's ICD was recently interrogated within the last week. Dr. Jamison from Cardiology has already been consulted and is aware of the case. There is no emergent need for Cardiology at this point, though, the patient may benefit from a formal cardiology consult tomorrow, though I suspect that he will likely be able to be discharged tomorrow as long as he has no arrhythmias on telemetry. 2. Coronary artery disease. The patient's first troponin was negative and he has no acute EKG changes. I do not think this represents any acute coronary syndrome at this time. I will continue the patient on his aspirin. 3. Hypertension. The patient is normotensive in the emergency room. I will continue his Carvedilol, losartan, and Spironolactone. 4. Depression. Continue bupropion. 5. FEN. The patient's creatinine is very slightly elevated. I believe he may be dry. I have ordered one bag of fluid and we will recheck labs in the morning. At this point, electrolytes do not require any repletion at this point. I have ordered a heart-healthy diet with no caffeine. 6. Code status: The patient will be a full code. 7. DVT prophylaxis. According to the DVT Risk Assessment, the patient scores a 3 putting him at high risk. I have ordered Lovenox. TIME SPENT: Approximately 60 minutes was spent on this admission, greater than half of that time spent [id number] with the patient obtaining my history, performing my physical exam, and reviewing the plan of care. This case has been reviewed with my attending, Dr. Che, who is in agreement with the plan of care. JANIE VO, BERNIE [id number]/[facility] #: [id number] GERONIMO
[2018-05-21 02:32] LABS: Troponin I 0.05 ng/mL (<0.04)
[2018-05-21 06:06] LABS: ABS Basophils 0.1 10^3/ul (0-0.2); ABS Eosinophils 0.1 10^3/ul (0-0.6); ABS Lymphocytes 2.4 10^3/ul (1.0-4.8); ABS Monocytes 0.7 10^3/ul (0-0.8); ABS Neutrophils 4.7 10^3/ul (1.5-7.7); ABS Nucleated RBC 0 10^3/ul; Hematocrit 36 % (42-52); Hemoglobin 12.5 g/dl (14.0-18.0); Mean Corpuscular HGB Conc 35 g/dl (31-36); Mean Corpuscular Hemoglobin 33 pg (27-31); Mean Corpuscular Volume 94 fL (80-94); Mean Platelet Volume 9.1 fL (7.4-10.4); Nucleated Red Blood Cells % 0.1; Platelet Count 142 10^3/ul (150-450); Red Blood Count 3.84 10^6/ul (4.00-5.40); Red Cell Distribution Width 13 % (10.5-15); White Blood Count 7.9 10^3/ul (3.5-10.8)
[2018-05-21 06:31] LABS: Anion Gap 4 mmol/L (2-11); BUN/Creatinine Ratio 17.4 (8-20); Blood Urea Nitrogen 19 mg/dL (6-24); CO2 Carbon Dioxide 26 mmol/L (22-32); Calcium 8.5 mg/dL (8.6-10.3); Chloride 112 mmol/L (101-111); EGFR African American 80.9 (>60); EGFR Non-African American 66.9 (>60); Glucose 103 mg/dL (70-100); Magnesium 1.9 mg/dL (1.9-2.7); Potassium 3.9 mmol/L (3.5-5.0); Sodium 142 mmol/L (135-145)
[2018-05-21 06:35] LABS: Troponin I 0.05 ng/mL (<0.04)
[2018-05-21] MEDS: buPROPion SR TAB.SR* 100 MG PO SCH (08:45)
[2018-05-21] MEDS: Carvedilol TAB* 25 MG PO SCH ×2 (08:45→20:14)
[2018-05-21] MEDS: Aspirin EC TAB* 81 MG TAB.EC PO SCH (08:45)
[2018-05-21] MEDS: Losartan TAB* 25 MG PO SCH (08:45)
[2018-05-21] MEDS: Spironolactone TAB* 25 MG PO SCH (08:46)
[2018-05-21] MEDS ORDERED: Mirtazapine TAB* 15 MG PO SCH (09:00)
[2018-05-21] MEDS: Potassium Chloride LIQUID* 20 MEQ PACKET PO SCH ×2 (10:51→14:28)
--- NOTE | 2018-05-21 13:10 | CONS ---
CC: Dr. Morrison* CARDIOLOGY CONSULTATION: DATE OF CONSULT: 05/21/18 REASON FOR EVALUATION: ICD shock. HISTORY OF PRESENT ILLNESS: This is a very pleasant 68-year-old gentleman with a history of coronary disease and has had longstanding recurrent ventricular tachycardia. He is status post an ablation for his VT at [facility] in June 2017. He continued to have nonsustained VT incidentally noted on his pacemaker in September 2017. Subsequently had a symptomatic episode of lightheadedness. He was seen at [facility] by Dr. Ramey, who suggested an increase in his carvedilol in February. He was seen again by Dr. Morrison in March and continued to have nonsustained episodes and his chloride was increased further. He was doing well until yesterday at about 5:30. He had had dinner and got up to take out some garbage. He got up and walked a few steps from his kitchen to his back door of the kitchen and as he put out the garbage, he felt lightheaded. He was able to walk back into the house and sit on a chair and within about 10 seconds the defibrillator shock went off. He felt okay after that. He came to the emergency room and he has been evaluated. He has had a mild bump in his troponins. He denies any chest pain. He denies any palpitations. He has not been exercising vigorously because since his ablation he said he has had problems with achiness in his hips and legs, which is attributed to lumbar radiculopathy. He denies fevers, chills, or sweats. PAST MEDICAL HISTORY: There is a history of coronary artery disease, VA, and cardiac cath in 2011. At that time, he had an acute coronary syndrome in March 2011 with sustained ventricular tachycardia. He underwent cardioversion , IV amiodarone. He had an urgent catheterization for ST segment depression suggesting posterior wall infarction. Cath at that time revealed mid LAD of 50 % to 55%, totally occluded circumflex, followed a mid OM branch reconstitution by balloon angioplasty to the low-lying marginal branch, left-sided PDA. He had balloon angioplasty, placement of a 2.75 x 28 mm long Promus stent overlapping more proximal by 2.7 x 12 mm Promus stent. The right coronary artery was nondominant. I had recurrent ventricular tachycardia after weaning off amiodarone and he was sent to [facility]. He had ventricular storm and had a defibrillator placed. He had a repeat evaluation with Dr. Camilo in June 2016 for an accelerated ventricular rhythm and had ablation of 2 ventricular tachycardia pathways in the posterolateral scar on 07/04. He had bradycardia in April 2012 requiring decrease of his nadolol. He recently had an upgrade to a dual chamber ICD [employer] ASR DR40 in February [address] Ramey and his beta-blockers had been increased. He has a history of hypertension, hyperlipidemia, GERD, anxiety, and depression. PAST SURGICAL HISTORY: Includes osteosarcoma excision in ; ICD placement in 2011, replaced on 02/25/18; ablation in June 2017; cardiac cath in 2011. MEDICATIONS: Include: 1. Aspirin 81 mg a day. 2. Bupropion 100 mg a day. 3. Carvedilol 25 mg b.i.d. 4. Hydrocodone/acetaminophen 5/325 one tab q.4 p.r.n. 5. Losartan 100 mg a day. 6. Mirtazapine 30 mg a day. 7. Nitroglycerin p.r.n. 8. Spironolactone 6.25 mg daily. 9. Ambien 10 mg at bedtime. ALLERGIES: He denies any drug allergies. FAMILY HISTORY: Father with CAD at age 70 and mother at 90 with dementia and he has 3 brothers who are alive and well. SOCIAL HISTORY: He drinks 1 to 2 cups of caffeinated coffee a day. He has 1 alcoholic beverage a month. 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 He is . He has 2 daughters. REVIEW OF SYSTEMS: Review of systems x10 was negative except as above. PHYSICAL EXAM: He is a well-developed, well-nourished gentleman, no apparent distress. Blood pressure 118/70, pulse is 60, O2 sats 96% on room air, afebrile. No significant JVD. Carotids 2+ without bruits. No cervical adenopathy or thyromegaly. Extraocular muscles are intact. Cardiac Exam: S1 and S2 without murmurs, gallops, or rubs. Chest was clear. Extremities: No edema. Distal pulses intact. Motor strength 5/5 bilaterally. Deep tendon reflexes 1/4 in the lower extremities, 2/4 in the upper extremities. Alert and oriented x3. DIAGNOSTIC STUDIES/LAB DATA: His labs include mild anemia with hematocrit of 36 , hemoglobin of 12.5, platelet count of 142. Sodium 142, potassium of 3.9. Today BUN of 19, creatinine of 1.09; down from 22/1.29 yesterday. Magnesium of 1.9. Troponin was 0.01 on admission, 0.04, 0.05, and 0.05 again this morning. TSH was normal. EKG revealed atrial paced rhythm at 60 with old inferior VA, counterclockwise rotation and nonspecific T-wave flattening laterally. The T-wave flattening was new compared to March. Of note, he had a nuclear stress test in August 2017 , which revealed exercise to 95% of maximum predicted. EF of 59%, dilated LV with normal range EF, small apical and apical lateral segment infarct with associated regional hypokinesia, no stress-induced ischemia, low risk. Echo from 03/29/11 revealed [id number] concentric LVH with a basilar inferior posterior wall aneurysm, [id number] decreased LV function with segmental wall motion abnormalities as above, mild MR. EF of 40% to 45%. Mid inferolateral and inferior wall hypokinetic, basal inferior wall akinetic. IMPRESSION AND PLAN: My impression is that Mr. Luong had a defibrillator shock presumably due to recurrent ventricular tachycardia in the setting of old scar. I have discussed the findings with the patient and made these recommendations. We will obtain interrogation of the unit to confirm that he was appropriately shocked for ventricular tachycardia. We will consult with Dr. Ramey concerning further options, antiarrhythmics or repeat ablation or possibilities. He has failed to have control of the symptoms despite increasing his beta- lachelle. We will try to maintain his potassium over 4. We will replace his magnesium as well. He is to avoid caffeine. He is to have an echo to reassess his LV function. Further recommendation depends on his clinical course. [id number]/[facility] #: [id number] addendum: d/w Dr. Bellamy and Dr. Brewer 05.21.18 The patient will be started on amiodarone [address] Ramey has arranged for a repeat VT ablation at [facility] for 05.26.18. [facility] 05.22.18 [facility]
[2018-05-21] MEDS ORDERED: Amiodarone TAB* 400 MG PO ONE (14:30)
[2018-05-21] MEDS ORDERED: Amiodarone TAB* 200 MG PO ONE (14:40)
--- NOTE | 2018-05-21 16:49 | PN ---
Subjective Date of Service: 05/21/18 Interval History: Patient seen and examined. No further acute events noted. Patient denies chest pain, states he feels "beat up" and fatigued, denies SOB. [facility] Objective Active Medications: Acetaminophen (Tylenol Tab*) 650 mg PO Q4H PRN PRN Reason: FEVER/PAIN Hydrocodone Bitart/Acetaminophen ([place] 5-325 Tab*) 1 tab PO Q4HR PRN PRN Reason: PAIN Amiodarone HCl (Cordarone Tab*) 200 mg PO BID [facility] Aspirin (Aspirin Ec Tab*) 81 mg PO DAILY [facility] Last Admin: 05/21/18 08:45 Dose: 81 mg Bupropion HCl (Wellbutrin Sr Tab*) 100 mg PO DAILY [facility] Last Admin: 05/21/18 08:45 Dose: 100 mg Carvedilol (Coreg Tab*) 25 mg PO BID [facility] Last Admin: 05/21/18 08:45 Dose: 25 mg Enoxaparin Sodium (Lovenox(*)) 40 mg SUBCUT Q24H [facility] Last Admin: 05/21/18 00:20 Dose: 40 mg Losartan Potassium (Cozaar Tab*) 100 mg PO DAILY [facility] Last Admin: 05/21/18 08:45 Dose: 100 mg Mirtazapine (Remeron Tab*) 30 mg PO BEDTIME [facility] Last Admin: 05/21/18 01:16 Dose: 30 mg Nitroglycerin (Nitroglycerin Tab 0.4 Mg*) 0.4 mg SL Q5M PRN PRN Reason: PAIN - CHEST Ondansetron HCl (Zofran Inj*) 4 mg IV Q4H PRN PRN Reason: NAUSEA/VOMITING Spironolactone (Aldactone Tab*) 6.25 mg PO DAILY [facility] Last Admin: 05/21/18 08:46 Dose: 6.25 mg Zolpidem Tartrate (Ambien Tab*) 10 mg PO BEDTIME [facility] Last Admin: 05/21/18 01:16 Dose: 10 mg Vital Signs - 8 hr 05/21/18 05/21/18 11:27 15:15 Temperature 97.6 F 98.1 F Pulse Rate 59 60 Respiratory 16 16 Rate Blood Pressure 123/74 123/71 (mmHg) O2 Sat by Pulse 96 97 Oximetry Oxygen Devices in Use Now: None Appearance: alert, well appearing, NAD Eyes: No Scleral Icterus, PERRLA Ears/Nose/Mouth/Throat: NL Teeth, Lips, Gums Neck: NL Appearance and Movements; NL JVP Respiratory: Symmetrical Chest Expansion and Respiratory Effort, Clear to Auscultation Cardiovascular: NL Sounds; No Murmurs; No JVD, RRR, No Edema Extremities: No Edema, No Clubbing, Cyanosis Skin: No Rash or Ulcers Neurological: Alert and Oriented x 3, NL Gait Nutrition: Taking PO's Result Diagrams: 05/21/18 05:56 05/21/18 05:56 Assess/Plan/Problems-Billing Assessment: This is a 68 year old male with complex cardiac history including CAD, angioplasty, recurrent ventricular tachycardia s/p ablation and AICD insertion that presented to ED after his AICD fired. - Patient Problems (1) Ventricular tachycardia Code(s): I47.2 - VENTRICULAR TACHYCARDIA SNOMED Code(s): 15980990 Comment: - Interrogation of [employer] AICD reveals VT rhythm with high rate prior to firing - Dr. Gonzalez consulted and following; discussed with [facility], patient will be started on amiodarone and may require additional ablation soon - Will monitor on loading amiodarone, if any further episodes of VT, will transfer to [facility] for urgent ablation (2) CAD (coronary artery disease) Code(s): I25.10 - ATHSCL HEART DISEASE OF [place] CORONARY ARTERY W/O ANG PCTRS SNOMED Code(s): 85397850 Comment: - s/p coronary stents and VT in 2011 - continue ASA, coreg, losartan , statin and NTG PRN - Mild bump in trops after VT rhythm, chest pain free - Continue tele (3) HTN (hypertension) Code(s): I10 - ESSENTIAL (PRIMARY) HYPERTENSION SNOMED Code(s): 35031142 Comment: - Stable on home meds (4) DVT prophylaxis Code(s): WIM0857 - SNOMED Code(s): 706580342 Comment: - Lovenox subq (5) Full code status Code(s): Z78.9 - OTHER SPECIFIED HEALTH STATUS SNOMED Code(s): 264833856 Status and Disposition: Inpatient, may need transfer to [facility] for ablation. Monitor closely.
--- NOTE | 2018-05-21 17:38 | ECHO ---
Patient: LEEANN MORATAYA [facility] Rec#: [id number] : 1950 Date: 05/21/2018 Age: 68y Height: 183 cm / 72.0 in Weight: 99 kg / 218.2 lbs Sex: M BSA: 2.21 Room#: [facility] Admit Date#: 05/20/2018 Type: Inpatient Referring: Cristino Gonzalez MD Reading: Cristino Gonzalez MD Electronic Gaming Device Supervisor: Bernice Ambrocio RDCS CC: Pati Jamison MD CC: Brian Gonzalez MD Transthoracic Echocardiogram Indication: Cardiomyopathy BP: 118/70 HR: 73 Rhythm: Paced Findings History: CAD, IL, VT, s/p ICD and ablation, HTN, HLD. Technical Comments: The study quality is good. Completed at 1615. Left Ventricle: The left ventricular chamber size is moderately dilated. Septal wall hypertrophy is observed. There are multiple regional wall motion abnormalities. There is mildly decreased left ventricular systolic function. The estimated ejection fraction is 40-45%. Post surgical hypokinesis of the interventricular septum is observed consistent with coronary artery bypass. Abnormal left ventricular diastolic function is observed. Abnormal left ventricular diastolic filling is observed, consistent with impaired relaxation. The mid anterolateral, and mid inferior wall segments are hypokinetic (score 2). The basal anterolateral wall segment is akinetic (score 3). There is scarring/thinningof the basal inferolateral, basal inferior, and mid inferolateralwall segments (score 5). Overall wallmotion score index is 2.00 Left Atrium: The left atrium is mildly dilated. Right Ventricle: Moderator Band present. The right ventricle is mildly dilated. The right ventricular global systolic function is low normal. A pacemaker wire is visualized in the right ventricle. Right Atrium: The right atrial cavity size is normal. A pacemaker wire is visualized in the right atrium. Aortic Valve: The aortic valve is trileaflet. The aortic valve leaflets are mildly thickened. There is trace to mild aortic regurgitation. There is no evidence of aortic stenosis. Mitral Valve: There is mitral annular calcification. The mitral valve leaflets are mildly thickened. There is trace to mild mitral regurgitation. There is no evidence of mitral stenosis. Tricuspid Valve: The tricuspid valve leaflets are normal. There is trace to mild tricuspid regurgitation. The right ventricular systolic pressure is estimated at 29 mmHg. No pulmonary hypertension is noted. There is no tricuspid stenosis. Pulmonic Valve: The pulmonic valve appears normal. There is a trace pulmonic regurgitation. There is no pulmonic stenosis. Pericardium: There is no significant pericardial effusion. Aorta: There is mild dilatation of the ascending aorta. The aortic arch is not well visualized. There is mild dilatation of the aortic root. Pulmonary Artery: The main pulmonary artery appears normal. Venous: The venous system is not well visualized. The inferior vena cava is not visualized. Conclusions The left ventricular chamber size is moderately dilated. Septal wall hypertrophy is observed. There are multiple regional wall motion abnormalities. The estimated ejection fraction is 40-45%. Abnormal left ventricular diastolic filling is observed, consistent with impaired relaxation. The left atrium is mildly dilated. The right ventricle is mildly dilated. The right ventricular global systolic function is low normal. The aortic valve leaflets are mildly thickened. There is trace to mild aortic regurgitation. There is trace to mild mitral regurgitation. There is trace to mild tricuspid regurgitation. New inferiorbasal wall motion abnormality c/t 2008 but c/w interval history of IL in 2011. Measurements Name Value Normal Range RVIDd (AP) 2D 3.8 cm (0.9 - 2.6) RVDdMajor (2D) 4.7 cm (2.2 - 4.4) RAd ISD 4CH 4.9 cm (3.4 - 4.9) RA (A4C)W 4.2 cm (2.9 - 4.6) IVSd (2D) 1.3 cm (0.6 - 1) LVPWd (2D) 0.7 cm (0.6 - 1) LVIDd (2D) 6.8 cm (3.6 - 5.4) LVIDs (2D) 5.8 cm - LV FS (2D) 15 % (25 - 45) Aortic Annulus 2.2 cm (1.4 - 2.6) Ao root diameter (2D) 4 cm (2.1 - 3.5) Ascending Ao 3.7 cm (2.1 - 3.4) LA dimension (AP) 2D 4.8 cm (2.3 - 3.8) LAd ISD 4CH 5.6 cm (2.9 - 5.3) LA ISD 4CH W 5.2 cm (2.5 - 4.5) Name Value Normal Range LA ESV BP (A/L) index 35 ml/m2 - Name Value Normal Range MV E-wave Vmax 0.6 m/sec - MV deceleration time 324 msec - MV A-wave Vmax 0.8 m/sec - MV E:A ratio 0.7 ratio - LV septal e' Vmax 0.04 m/sec - LV lateral e' Vmax 0.03 m/sec - LV E:e' septal ratio 15 ratio - LV E:e' lateral ratio 20 ratio - Name Value Normal Range AV Vmax 1.2 m/sec - AV VTI 25 cm - AV peak gradient 6 mmHg - AV mean gradient 3 mmHg - LVOT Vmax 0.9 m/sec - LVOT VTI 21 cm - LVOT peak gradient 3 mmHg - LVOT mean gradient 2 mmHg - Name Value Normal Range TR Vmax 2.3 m/sec - TR peak gradient 21 mmHg - RAP 8 mmHg - RVSP 29 mmHg - Name Value Normal Range PV Vmax 0.9 m/sec - PV peak gradient 3 mmHg - Wallmotion BAS Normal BA Normal BAL Akinetic FRANSISCA Scarring/Thinning BI Scarring/Thinning BIS Normal MAS Normal MA Normal MAL Hypokinetic MIL Scarring/Thinning IL Hypokinetic MIS Normal Normal AA Normal AL Normal AI Normal APEX Normal
[2018-05-21] MEDS ORDERED: Zolpidem TAB* 10 MG PO SCH (21:00)
[2018-05-22] MEDS: Carvedilol TAB* 25 MG PO SCH ×2 (09:23→20:36)
[2018-05-22] MEDS: Losartan TAB* 25 MG PO SCH (09:23)
[2018-05-22] MEDS: Aspirin EC TAB* 81 MG TAB.EC PO SCH (09:23)
[2018-05-22] MEDS: Spironolactone TAB* 25 MG PO SCH (09:23)
[2018-05-22] MEDS: buPROPion SR TAB.SR* 100 MG PO SCH (09:23)
[2018-05-22] MEDS: Amiodarone TAB* 200 MG PO SCH ×2 (09:23→20:36)
[2018-05-22] MEDS ORDERED: Carvedilol TAB* 6.25 MG PO ONE (18:27)
--- NOTE | 2018-05-22 20:07 | PN ---
Subjective Date of Service: 05/22/18 Interval History: Patient seen and examined. No acute overnight events. Tele reviewed. Patient states no chest pain, remains fatigued. complaint of anterior thigh pain with ambulation. Denies fevers or chills, no SOB. Objective Active Medications: Acetaminophen (Tylenol Tab*) 650 mg PO Q4H PRN PRN Reason: FEVER/PAIN Hydrocodone Bitart/Acetaminophen ([place] 5-325 Tab*) 1 tab PO Q4HR PRN PRN Reason: PAIN Last Admin: 05/21/18 20:13 Dose: 1 tab Amiodarone HCl (Cordarone Tab*) 200 mg PO BID [facility] Last Admin: 05/22/18 09:23 Dose: 200 mg Aspirin (Aspirin Ec Tab*) 81 mg PO DAILY [facility] Last Admin: 05/22/18 09:23 Dose: 81 mg Bupropion HCl (Wellbutrin Sr Tab*) 100 mg PO DAILY [facility] Last Admin: 05/22/18 09:23 Dose: 100 mg Carvedilol (Coreg Tab*) 12.5 mg PO BID [facility] Enoxaparin Sodium (Lovenox(*)) 40 mg SUBCUT Q24H [facility] Last Admin: 05/21/18 22:06 Dose: 40 mg Losartan Potassium (Cozaar Tab*) 100 mg PO DAILY [facility] Last Admin: 05/22/18 09:23 Dose: 100 mg Mirtazapine (Remeron Tab*) 30 mg PO BEDTIME [facility] Last Admin: 05/21/18 20:12 Dose: 30 mg Nitroglycerin (Nitroglycerin Tab 0.4 Mg*) 0.4 mg SL Q5M PRN PRN Reason: PAIN - CHEST Ondansetron HCl (Zofran Inj*) 4 mg IV Q4H PRN PRN Reason: NAUSEA/VOMITING Potassium Chloride (Klor-Con Liquid*) 20 meq PO DAILY [facility] Stop: 05/23/18 09:01 Spironolactone (Aldactone Tab*) 6.25 mg PO DAILY [facility] Last Admin: 05/22/18 09:23 Dose: 6.25 mg Zolpidem Tartrate (Ambien Tab*) 10 mg PO BEDTIME [facility] Last Admin: 05/21/18 20:14 Dose: 10 mg Vital Signs - 8 hr 05/22/18 15:18 Temperature 98.0 F Pulse Rate 60 Respiratory 14 Rate Blood Pressure 120/73 (mmHg) O2 Sat by Pulse 97 Oximetry Oxygen Devices in Use Now: None Appearance: alert, NAD Eyes: No Scleral Icterus, PERRLA Ears/Nose/Mouth/Throat: NL Teeth, Lips, Gums, Mucous Membranes Moist Neck: NL Appearance and Movements; NL JVP, Trachea Midline Respiratory: Clear to Auscultation Cardiovascular: NL Sounds; No Murmurs; No JVD, RRR - paced, No Edema Abdominal: NL Sounds; No Tenderness; No Distention Extremities: No Edema, No Clubbing, Cyanosis Skin: No Rash or Ulcers Neurological: Alert and Oriented x 3, NL Sensation Nutrition: Taking PO's Result Diagrams: 05/21/18 05:56 05/21/18 05:56 Assess/Plan/Problems-Billing Assessment: This is a 68 year old male with complex cardiac history including CAD, angioplasty, recurrent ventricular tachycardia s/p ablation and AICD insertion that presented to ED after his AICD fired. - Patient Problems (1) Ventricular tachycardia Code(s): I47.2 - VENTRICULAR TACHYCARDIA SNOMED Code(s): 86617602 Comment: - Interrogation of [facility] [place] AICD reveals VT rhythm with high rate prior to firing - Dr. Gonzalez consulted and following; discussed with [place] cardiology - Amiodarone initiated yesterday, no further episodes of VT - Plan for either transfer to [place] for ablation on Friday, or, if he remains stable, may be able to DC home in care of on amidodarone and proceed to [place] as an outpatient on Friday. - Review tele again tomorrow. - Will monitor on loading amiodarone, if any further episodes of VT, will transfer to [place] for urgent ablation (2) CAD (coronary artery disease) Code(s): I25.10 - ATHSCL HEART DISEASE OF [place] CORONARY ARTERY W/O ANG PCTRS SNOMED Code(s): 03046470 Comment: - s/p coronary stents and [place] in 2011 - continue ASA, coreg, losartan , statin and NTG PRN - Mild bump in trops after VT rhythm, chest pain free - Continue tele (3) Leg pain, bilateral Code(s): M79.604 - PAIN IN RIGHT LEG; M79.605 - PAIN IN LEFT LEG SNOMED Code(s ): 49145590 Comment: - Patient states CT in the past revealed degen disc disease, pain is described as radiating and burning and seems consistent with radiculopathy - [place] as needed, PT consult (4) HTN (hypertension) Code(s): I10 - ESSENTIAL (PRIMARY) HYPERTENSION SNOMED Code(s): 80534513 Comment: - Stable on home meds (5) DVT prophylaxis Code(s): MBE6633 - SNOMED Code(s): 233899833 Comment: - Lovenox subq (6) Full code status Code(s): Z78.9 - OTHER SPECIFIED HEALTH STATUS SNOMED Code(s): 311542770 Status and Disposition: Inpatient, may need transfer to [place] for ablation. Monitor closely.
[2018-05-22] MEDS: Potassium Chloride LIQUID* 20 MEQ PACKET PO SCH (20:35)
[2018-05-22] MEDS: Mirtazapine TAB* 15 MG PO SCH (20:37)
[2018-05-22] MEDS: Zolpidem TAB* 10 MG PO SCH (20:37)
[2018-05-22] MEDS: Enoxaparin(*) 40 MG/0.4 ML SYR SUBCUT SCH (20:38)
[2018-05-23 05:57] LABS: ABS Basophils 0.1 10^3/ul (0-0.2); ABS Eosinophils 0.1 10^3/ul (0-0.6); ABS Lymphocytes 1.7 10^3/ul (1.0-4.8); ABS Monocytes 0.7 10^3/ul (0-0.8); ABS Neutrophils 4.6 10^3/ul (1.5-7.7); ABS Nucleated RBC 0 10^3/ul; Eosinophil % 1.1 %; Hematocrit 40 % (42-52); Hemoglobin 13.8 g/dl (14.0-18.0); Lymphocyte % 23.9 %; Mean Corpuscular HGB Conc 34 g/dl (31-36); Mean Corpuscular Hemoglobin 32 pg (27-31); Mean Corpuscular Volume 94 fL (80-94); Mean Platelet Volume 9.1 fL (7.4-10.4); Nucleated Red Blood Cells % 0.1; Platelet Count 151 10^3/ul (150-450); Red Blood Count 4.27 10^6/ul (4.00-5.40); Red Cell Distribution Width 13 % (10.5-15); White Blood Count 7.1 10^3/ul (3.5-10.8)
[2018-05-23 06:14] LABS: Albumin 3.7 g/dL (3.2-5.2); Albumin/Globulin Ratio 1.8 (1-3); BUN/Creatinine Ratio 16.3 (8-20); Calcium 8.8 mg/dL (8.6-10.3); EGFR African American 98.4 (>60); EGFR Non-African American 81.3 (>60); Globulin 2.1 g/dL (2-4); Potassium 3.8 mmol/L (3.5-5.0); Total Bilirubin 0.7 mg/dL (0.2-1.0); Total Protein 5.8 g/dL (6.4-8.9)
[2018-05-23] MEDS: Potassium Chloride LIQUID* 20 MEQ PACKET PO SCH ×3 (08:19→17:46)
[2018-05-23] MEDS: Carvedilol TAB* 25 MG PO SCH ×2 (08:20→19:31)
[2018-05-23] MEDS: Spironolactone TAB* 25 MG PO SCH (08:20)
[2018-05-23] MEDS: Aspirin EC TAB* 81 MG TAB.EC PO SCH (08:21)
[2018-05-23] MEDS: Amiodarone TAB* 200 MG PO SCH ×2 (08:21→19:27)
[2018-05-23] MEDS: buPROPion SR TAB.SR* 100 MG PO SCH (08:21)
[2018-05-23] MEDS: Losartan TAB* 25 MG PO SCH (08:21)
--- NOTE | 2018-05-23 15:35 | PN ---
Subjective Date of Service: 05/23/18 Interval History: Patient seen and examined. No acute overnight events. Still feels weak. No arrhythmias overnight. Denies chest pain, no palpitations, no SOB. Still having bilateral leg weakness. Objective Active Medications: Acetaminophen (Tylenol Tab*) 650 mg PO Q4H PRN PRN Reason: FEVER/PAIN Hydrocodone Bitart/Acetaminophen ([place] 5-325 Tab*) 1 tab PO Q4HR PRN PRN Reason: PAIN Last Admin: 05/21/18 20:13 Dose: 1 tab Amiodarone HCl (Cordarone Tab*) 200 mg PO BID [facility] Last Admin: 05/23/18 08:21 Dose: 200 mg Aspirin (Aspirin Ec Tab*) 81 mg PO DAILY [facility] Last Admin: 05/23/18 08:21 Dose: 81 mg Bupropion HCl (Wellbutrin Sr Tab*) 100 mg PO DAILY [facility] Last Admin: 05/23/18 08:21 Dose: 100 mg Carvedilol (Coreg Tab*) 12.5 mg PO BID [facility] Last Admin: 05/23/18 08:20 Dose: 12.5 mg Enoxaparin Sodium (Lovenox(*)) 40 mg SUBCUT Q24H [facility] Last Admin: 05/22/18 20:38 Dose: 40 mg Losartan Potassium (Cozaar Tab*) 100 mg PO DAILY [facility] Last Admin: 05/23/18 08:21 Dose: 100 mg Mirtazapine (Remeron Tab*) 30 mg PO BEDTIME [facility] Last Admin: 05/22/18 20:37 Dose: 30 mg Nitroglycerin (Nitroglycerin Tab 0.4 Mg*) 0.4 mg SL Q5M PRN PRN Reason: PAIN - CHEST Ondansetron HCl (Zofran Inj*) 4 mg IV Q4H PRN PRN Reason: NAUSEA/VOMITING Potassium Chloride (Klor-Con Liquid*) 20 meq PO Q4HR [facility] Stop: 05/23/18 18:01 Spironolactone (Aldactone Tab*) 6.25 mg PO DAILY [facility] Last Admin: 05/23/18 08:20 Dose: 6.25 mg Zolpidem Tartrate (Ambien Tab*) 10 mg PO BEDTIME [facility] Last Admin: 05/22/18 20:37 Dose: 10 mg Vital Signs - 8 hr 05/23/18 05/23/1805/23/19 07:59 08:15 11:42 Temperature 97.9 F 97.8 F Pulse Rate 60 60 Respiratory 14 16 18 Rate Blood Pressure 139/80 153/79 (mmHg) O2 Sat by Pulse 96 96 Oximetry Oxygen Devices in Use Now: None Appearance: alert, NAD Eyes: No Scleral Icterus, PERRLA Ears/Nose/Mouth/Throat: NL Teeth, Lips, Gums, Mucous Membranes Moist Neck: NL Appearance and Movements; NL JVP, Trachea Midline Respiratory: Symmetrical Chest Expansion and Respiratory Effort, Clear to Auscultation Cardiovascular: NL Sounds; No Murmurs; No JVD, RRR - paced on tele, No Edema Abdominal: NL Sounds; No Tenderness; No Distention Extremities: No Edema, No Clubbing, Cyanosis Skin: No Rash or Ulcers Neurological: Alert and Oriented x 3, NL Sensation Nutrition: Taking PO's Result Diagrams: 05/23/18 05:38 05/23/18 05:38 Assess/Plan/Problems-Billing Assessment: This is a 68 year old male with complex cardiac history including CAD, angioplasty, recurrent ventricular tachycardia s/p ablation and AICD insertion that presented to ED after his AICD fired. - Patient Problems (1) Ventricular tachycardia Code(s): I47.2 - VENTRICULAR TACHYCARDIA SNOMED Code(s): 02280705 Comment: - Interrogation of [facility] AICD reveals VT rhythm with high rate prior to firing - Dr. Gonzalez consulted and following; discussed with [place] cardiology - Amiodarone initiated, tolerating well - Tele reviewed, no further vtach - Plan for either transfer to [place] for ablation on Friday, or, if he remains stable, may be able to DC home in care of on amidodarone and proceed to [place] as an outpatient on Friday. - Will monitor on loading amiodarone, if any further episodes of VT, will transfer to [place] for urgent ablation (2) CAD (coronary artery disease) Code(s): I25.10 - ATHSCL HEART DISEASE OF [place] CORONARY ARTERY W/O ANG PCTRS SNOMED Code(s): 49152634 Comment: - s/p coronary stents and [place] in 2011 - continue ASA, coreg, losartan , statin and NTG PRN - Mild bump in trops after VT rhythm, chest pain free - Continue tele (3) Leg pain, bilateral Code(s): M79.604 - PAIN IN RIGHT LEG; M79.605 - PAIN IN LEFT LEG SNOMED Code(s ): 85105727 Comment: - Patient states CT in the past revealed degen disc disease, pain is described as radiating and burning and seems consistent with radiculopathy - Analgesia as needed, PT consult (4) HTN (hypertension) Code(s): I10 - ESSENTIAL (PRIMARY) HYPERTENSION SNOMED Code(s): 62965445 Comment: - Stable on home meds (5) DVT prophylaxis Code(s): TXD3141 - SNOMED Code(s): 564146911 Comment: - Lovenox subq (6) Full code status Code(s): Z78.9 - OTHER SPECIFIED HEALTH STATUS SNOMED Code(s): 089285796 Status and Disposition: Inpatient, may need transfer to [place] for ablation. Monitor closely.
[2018-05-23] MEDS: Zolpidem TAB* 10 MG PO SCH (19:34)
[2018-05-23] MEDS: Mirtazapine TAB* 15 MG PO SCH (19:34)
[2018-05-23] MEDS: Enoxaparin(*) 40 MG/0.4 ML SYR SUBCUT SCH (20:05)
[2018-05-24 07:17] LABS: BUN/Creatinine Ratio 18.6 (8-20); EGFR African American 87.4 (>60); EGFR Non-African American 72.2 (>60); Magnesium 1.9 mg/dL (1.9-2.7)
[2018-05-24] MEDS: Amiodarone TAB* 200 MG PO SCH ×2 (08:02→20:23)
[2018-05-24] MEDS: Losartan TAB* 25 MG PO SCH (08:02)
[2018-05-24] MEDS: Carvedilol TAB* 25 MG PO SCH ×2 (08:02→20:23)
[2018-05-24] MEDS: Spironolactone TAB* 25 MG PO SCH (08:04)
[2018-05-24] MEDS: buPROPion SR TAB.SR* 100 MG PO SCH (08:04)
[2018-05-24] MEDS: Aspirin EC TAB* 81 MG TAB.EC PO SCH (08:04)
--- NOTE | 2018-05-24 12:56 | PN ---
Subjective Date of Service: 05/24/18 Interval History: Mr. Luong is feeling ok today. His leg pain remains the same and is quite distressing to him. He reports he was able to climb 2 flights of stairs yesterday without pain, but developed pain approx 2 hours later while resting in bed. [place] managing pain well. He denies any CP, SOB, palpitations, dizziness. at bedside. No arrhythmias noted on tele. Family History: Unchanged from Admission Social History: Unchanged from Admission Past Medical History: Unchanged from Admission Objective Active Medications: Acetaminophen (Tylenol Tab*) 650 mg PO Q4H PRN FEVER/PAIN Hydrocodone Bitart/Acetaminophen ([place] 5-325 Tab*) 1 tab PO Q4HR PRN PAIN Amiodarone HCl (Cordarone Tab*) 200 mg PO BID [facility] Aspirin (Aspirin Ec Tab*) 81 mg PO DAILY [facility] Bupropion HCl (Wellbutrin Sr Tab*) 100 mg PO DAILY [facility] Carvedilol (Coreg Tab*) 12.5 mg PO BID [facility] Enoxaparin Sodium (Lovenox(*)) 40 mg SUBCUT Q24H [facility] Losartan Potassium (Cozaar Tab*) 100 mg PO DAILY [facility] Mirtazapine (Remeron Tab*) 30 mg PO BEDTIME [facility] Nitroglycerin (Nitroglycerin Tab 0.4 Mg*) 0.4 mg SL Q5M PRN PAIN - CHEST Ondansetron HCl (Zofran Inj*) 4 mg IV Q4H PRN NAUSEA/VOMITING Spironolactone (Aldactone Tab*) 6.25 mg PO DAILY [facility] Zolpidem Tartrate (Ambien Tab*) 10 mg PO BEDTIME [facility] Vital Signs - 8 hr 05/24/18 05/24/18 05/24/18 08:00 08:02 11:53 Temperature 97.9 F 98.1 F Pulse Rate 60 60 59 Respiratory 20 20 16 Rate Blood Pressure 135/70 135/70 127/74 (mmHg) O2 Sat by Pulse 97 97 Oximetry Oxygen Devices in Use Now: None Appearance: Elderly male sitting in bed in NAD Eyes: No Scleral Icterus Ears/Nose/Mouth/Throat: Mucous Membranes Moist Neck: NL Appearance and Movements; NL JVP, Trachea Midline Respiratory: Symmetrical Chest Expansion and Respiratory Effort, Clear to Auscultation Cardiovascular: NL Sounds; No Murmurs; No JVD, RRR Extremities: No Edema Skin: No Rash or Ulcers Neurological: Alert and Oriented x 3 Lines/Tubes/Other Access: Clean, Dry and Intact Peripheral IV Nutrition: Taking PO's Result Diagrams: 05/23/18 05:38 05/24/18 06:48 Assess/Plan/Problems-Billing Assessment: Mr. Luong is a 68 year old M with complex cardiac hx including CAD, angioplasty , recurrent ventricular tachycardia s/p ablation and AICD insertion that presented to ED after his AICD fired. - Patient Problems (1) Ventricular tachycardia Code(s): I47.2 - VENTRICULAR TACHYCARDIA Comment: - Interrogation of [facility] [facility] AICD reveals VT rhythm with high rate prior to firing - Cardiology consulted and following; discussed with [place] cardiology - Tele reviewed, no further vtach - Plan for either transfer to [place] for ablation on Friday, or if he remains stable, may be able to d/c home in care of on amidodarone and proceed to [place] as an outpatient - Will monitor on amiodarone and if any further episodes of VT, will transfer to [place] for urgent ablation - Continue carvedilol, amiodarone (2) Leg pain, bilateral Code(s): M79.604 - PAIN IN RIGHT LEG; M79.605 - PAIN IN LEFT LEG Comment: - Pain is described as radiating and burning and seems consistent with radiculopathy - Patient states CT in the past revealed DJD - Discussed the possibility of starting medication for neuropathy; he will consider and discuss with his PCP - Continue [place] (3) CAD (coronary artery disease) Code(s): I25.10 - ATHSCL HEART DISEASE OF [place] CORONARY ARTERY W/O ANG PCTRS Comment: - S/p PR and stents in 2011 - Mild bump in trops after VT rhythm, but asymptomatic - Continue ASA, coreg, nitro (4) HTN (hypertension) Code(s): I10 - ESSENTIAL (PRIMARY) HYPERTENSION Comment: - Normotensive, SBP 120-130s - Continue carvedilol, losartan, spironolactone (5) DVT prophylaxis Comment: - Lovenox (6) Full code status Code(s): Z78.9 - OTHER SPECIFIED HEALTH STATUS Comment: Status and Disposition: Inpatient. Plan for ablation in [place] on Friday. May be able to d/c pt with his who will drive him to [place]. If any further VT or unstable, will need hospital to hospital transfer. Attending: Luzma Minor
[2018-05-24] MEDS: Enoxaparin(*) 40 MG/0.4 ML SYR SUBCUT SCH (20:25)
[2018-05-24] MEDS: Zolpidem TAB* 10 MG PO SCH (20:25)
[2018-05-24] MEDS: Mirtazapine TAB* 15 MG PO SCH (20:25)
[2018-05-25] MEDS ORDERED: ALPRAZolam TAB* 0.25 MG PO ONE (07:58)
[2018-05-25] MEDS ORDERED: Potassium Chlor TAB* 20 MEQ TAB.ER PO ONE (08:08)
[2018-05-25] MEDS ORDERED: Magnesium Oxide TAB* 400 MG PO ONE (08:08)
[2018-05-25] MEDS: Amiodarone TAB* 200 MG PO SCH (09:29)
[2018-05-25] MEDS: Aspirin EC TAB* 81 MG TAB.EC PO SCH (09:30)
[2018-05-25] MEDS: buPROPion SR TAB.SR* 100 MG PO SCH (09:30)
[2018-05-25] MEDS: Losartan TAB* 25 MG PO SCH (09:31)
[2018-05-25] MEDS: Carvedilol TAB* 25 MG PO SCH (09:33)
[2018-05-25] MEDS: Spironolactone TAB* 25 MG PO SCH (09:36)
[2018-05-25 12:09] VITALS: BP 143/74
--- NOTE | 2018-05-25 18:53 | DS ---
CC: Dr. Brian Gonzalez; Dr. Abhi Morrison * DISCHARGE SUMMARY: DATE OF ADMISSION: 05/20/18 DATE OF DISCHARGE: 05/25/18 PRIMARY CARE PROVIDER: Dr. Brian Gonzalez. COLLECTION SUPERVISOR: Dr. Abhi Morrison. ATTENDING PHYSICIAN: Dr. Luzma Minor * (dictated by Shi Vo NP). PRIMARY DIAGNOSES: 1. Ventricular tachycardia resulting in the patient's ICD firing. 2. Bilateral leg pain. SECONDARY DIAGNOSES: 1. Coronary artery disease. 2. Hypertension. STUDIES WHILE IN THE HOSPITAL: 1. EKG on 05/20/18 shows normal sinus rhythm with a rate of 65, QTc 425, Q waves present in inferior leads. This was consistent with previous EKGs on file. 2. EKG on 05/20/18 shows normal sinus rhythm with atrial pacing and a rate of 60, QTc 442, again Q waves present in inferior leads. 3. EKG on 05/21/18 shows normal sinus rhythm with atrial pacing and a rate of 60, QTc 458, Q waves present in inferior leads. 4. Transthoracic echocardiogram on 05/21/18 reads as the left ventricular chamber size is moderately dilated. Septal wall hypertrophy is observed. There are multiple regional wall abnormalities. The estimated ejection fraction is 40% to 45%. Abnormal left ventricular diastolic filling is observed , consistent with impaired relaxation. The left atrium is mildly dilated. The right ventricle is mildly dilated. The right ventricular global systolic function is low normal. The aortic leaflets are mildly thickened. There is trace to mild aortic regurgitation. There is trace to mild mitral regurgitation. There is trace to mild tricuspid regurgitation. New inferior basal wall motion abnormality compared to 2008, but consistent with interval history of [place] in 2011. HISTORY OF PRESENT ILLNESS AND HOSPITAL COURSE: Mr. Luong is a 68-year-old male with past medical history of CAD with [place] in 2012; ventricular tachycardia, status post ICD placement and ablation; hypertension; hyperlipidemia and anxiety , who presented to the emergency room on 05/20/18 with complaints of dizziness and feeling his ICD fire. Please see the history and physical by myself for a complete summary of the events leading up to this hospitalization. In short, the patient reports that he was bringing garbage outside, when he got back to his house, he started feeling dizzy. He went inside to sit down and subsequent felt his ICD fire. The dizziness resolved immediately after the defibrillator fired. He reports feeling his defibrillator fire only one time in the past prior to this during an ablation procedure, which he had in June 2017. In the emergency room, the patient denied any chest pain or dizziness. He had lab work , which was remarkable only for a mildly elevated creatinine. Because of the concern for ventricular tachycardia, he was admitted by the hospitalist service. The patient had serial troponins, which peaked at 0.05. Secondary to his ventricular tachycardia, he did have interrogation of his ICD, which revealed a ventricular tachycardia rhythm with high rate prior to firing. The patient had no further ventricular tachycardia or other arrhythmias noted on telemetry. Cardiology was consulted and recommended repleting electrolytes, avoiding caffeine and obtaining an echocardiogram. Those results are noted above. Dr. Gonzalez subsequently spoke with Dr. Ramey at [facility], who has seen the patient previously for an ablation and Dr. Ramey recommended that the patient be started on amiodarone and arrange for a repeat ablation. An ablation was scheduled for 05/26/18. Although, the patient had no further arrhythmias on telemetry, he remained in the hospital over the weekend as he was having severe anxiety about experiencing another episode of ventricular tachycardia and not being in the hospital. I will note that during this hospitalization, the patient also complained of bilateral leg pain, which he states has been chronic since his ablation. He reports he does have some degenerative disk disease. He has been taking [place] for this, which seems to manage his pain well. The pain does sound to be neuropathic, so I did discuss the possibility of starting a medication such as gabapentin, though the patient wanted to hold off at this point. The patient was continued on amiodarone and his other usual medications. Cardiology did decrease the dose of his carvedilol. I spoke at length with the patient and his yesterday about options for discharge and the patient's comfort level. Ultimately, it was decided that the patient would be discharged today and the patient's will plan to drive them up to [place] immediately after discharge where they will spend the night and have the ablation on 05/26/18. The patient does still express significant anxiety and concern about experiencing another episode of ventricular tachycardia and so was agreeable to trying a benzodiazepine. I did speak with Dr. Gonzalez the day prior to discharge, who felt as though again the patient was stable for discharge. He did feel as though the patient possibly was experiencing some PTSD from this episode and advised that it would be ideal if his anxiety were controlled as increased anxiety may lead to another episode of ventricular tachycardia. On exam today, the patient denies any complaints. He has had no dizziness. He denies any chest pain or shortness of breath. Mr. Luong is stable for discharge today. Vital signs are as follows: Temp 97.2 , heart rate 59, respiratory rate 20, oxygen saturation 97% on room air, blood pressure 143/74. DISCHARGE MEDICATIONS: New medications: 1. Alprazolam 0.25 mg p.o. q.6 hours p.r.n. anxiety. 2. Amiodarone 200 mg p.o. b.i.d. Changed medication: 1. Carvedilol 12.5 mg p.o. b.i.d. (previously, it was 25 mg b.i.d.) Continued medications: 1. Aspirin 81 mg p.o. daily. 2. Bupropion 100 mg p.o. daily. 3. Hydrocodone/acetaminophen 5/325 mg 1 tab p.o. q.4 hours p.r.n. pain. 4. Losartan 100 mg p.o. daily. 5. Mirtazapine 30 mg p.o. daily. 6. Nitroglycerin 0.4 mg sublingual q.5 minutes p.r.n. chest pain. 7. Spironolactone 6.25 mg p.o. daily. 8. Ambien 10 mg p.o. at bedtime. DISCHARGE PLAN: Mr. Luong will be discharged in the care of his as discussed above. They will plan to drive to [place] today and spend the night there for his planned ablation on 05/26/18. I have advised the patient that he should only do light activity until he is cleared by Cardiology to return to his normal activity levels. His diet should be heart-healthy and he should avoid any caffeine. Medications are noted above. Again, the patient has been started on amiodarone per the recommendations of his charge auditor in [place]. As I discussed above, I also prescribed the patient a small supply of alprazolam. I feel this is necessary at this point in order to control the patient's anxiety until he is able to be ablated as we would like to prevent any further episodes of ventricular tachycardia. His Coreg dosing has been changed by Cardiology, so I will continue that per their recommendations. He can continue his other usual medications. Again, he is following up with his charge auditor in [place] tomorrow. He will need to follow up with Dr. Morrison within the next month as it will need to be determined if he will need to stay on the amiodarone. He should also follow up with his primary care provider in the next 4 to 7 days. The patient has been advised to return to the emergency room or nearest hospital for any worsening of symptoms, shortness of breath, lightheadedness, dizziness, chest discomfort, high fevers, chills, night sweats , loss of consciousness, or any other worrisome signs or symptoms. DISCHARGE CONDITION: Stable. DISCHARGE DISPOSITION: Home. This is a summarized report of a complex medical history and hospital stay. For further details, please see the entire medical record. TIME SPENT: Approximately 50 minutes was spent on this discharge, greater than half of that time spent [id number] with the patient discussing discharge plans and instructions. SHI VO, FIRE EQUIPMENT REPAIRER INSPECTOR [id number]/CPS #: [id number] GERONIMO
[2018-05-26] MEDS ORDERED: SPIRONOLACTONE 25 MG PO SCH (09:00)
== END 2018-05-25 12:25 | disposition home or self-care (01) | DRG 201 ==
LOC: ED 19:08 → MEDTELE 21:49 → OBSVTOIN 05-21 09:00
PROVIDERS: ADMIT Pediatrics; ATTEND Internal Medicine
DX: I47.2 Ventricular tachycardia (principal); M79.605 Pain in left leg; M79.604 Pain in right leg; I25.10 Atherosclerotic heart disease of native coronary artery without angina pectoris; I11.9 Hypertensive heart disease without heart failure; I08.3 Combined rheumatic disorders of mitral, aortic and tricuspid valves; E78.5 Hyperlipidemia, unspecified; F32.9 Major depressive disorder, single episode, unspecified; K21.9 Gastro-esophageal reflux disease without esophagitis; F41.9 Anxiety disorder, unspecified; N40.0 Benign prostatic hyperplasia without lower urinary tract symptoms; M54.10 Radiculopathy, site unspecified; Z95.810 Presence of automatic (implantable) cardiac defibrillator; I25.2 Old myocardial infarction; Z95.5 Presence of coronary angioplasty implant and graft; Z79.82 Long term (current) use of aspirin; Z79.899 Other long term (current) drug therapy; Z82.49 Family history of ischemic heart disease and other diseases of the circulatory system; Z87.891 Personal history of nicotine dependence
CPT/HCPCS: 36415; 80048; 80053; 83735; 84443; 84484; 85025; 85610; 85730; 93005; 93306; 99285; A9270-GY; G8978-GP-CI; G8979-GP-CI; G8980-GP-CI; J1650

== ENCOUNTER 2018-06-05 10:19 | Emergency (ER) | payer BC ==
--- NOTE | 2018-06-05 10:59 | ED ---
Dizziness - HPI Summary HPI Summary: This patient is a 68 year old male brought in by EMS presenting to [facility] with a chief complaint of weakness 2 hours [employer]. Pt is s/p ablasion at [place] 9 days ago for ventricular tachycardia. He woke up this morning and reports feeling clammy, light headedness, and near-syncope. He had a routine follow-up this morning when his physician told him to come here after stating those symptoms. Patient states he believes anxiety is a contributing factor to his problems. EMS reported that he was hypotensive, although this has resolved as his blood pressure was 145/90 in the room. The patient has an internal defibrillator. Patient denies Hx of CHF. Hx of VA in 2011. - History Of Current Complaint Chief Complaint: EDGeneral Stated Complaint: BLOOD PRESSURE ISSUES PER EMS Time Seen by Provider: 06/05/18 10:41 Hx Obtained From: Patient, EMS Timing: Hours Severity Initially: Mild Severity Currently: Mild Character: Lightheaded, Weak - Risk Factors Cardiac Risk Factors: Family History, Prior VA - Allergies/Home Medications Allergies/Adverse Reactions: Allergies Allergy/AdvReac Type Severity Reaction Status Date / Time No Known Allergies Allergy Verified 06/05/18 10:31 Home Medications: Home Medications buPROPion HCl [Bupropion HCl Sr] 150 mg PO DAILY 06/05/18 [History Confirmed ] PMH/Surg Hx/FS Hx/Imm Hx Endocrine/Hematology History: Denies: Hx Anticoagulant Therapy, Hx Blood Transfusions, Hx Diabetes, Hx Anemia Cardiovascular History: Reports: Hx Auto Implanted Cardiovert Defib - ICD 2ND TO V-TACH, Hx Coronary Artery Disease, Hx Hypercholesterolemia, Hx Hypertension , Hx Myocardial Infarction, Hx Pacemaker/ICD, Hx Syncope, Other Cardiovascular Problems/Disorders - ERECTILE DYSFUNCTION Denies: Hx Angina, Hx Angioplasty, Hx Cardiac Arrest, Hx Cardiomegaly, Hx Congestive Heart Failure, Hx Valvular Heart Disease Respiratory History: Reports: Hx Pneumonia - ONCE Denies: Hx Asthma, Hx Chronic Obstructive Pulmonary Disease (COPD) GI History: Reports: Hx Irritable Bowel Denies: Other GI Disorders History: Reports: Hx Benign Prostatic Hyperplasia, Hx Kidney Stones - 2-3 times, last time 2008, Other Problems/Disorders - slightly enlarged prostate Musculoskeletal History: Reports: Hx Tendonitis - wrists, arms at times painful , Other Musculoskeletal History - "generalized aches and pains of aging" Sensory History: Reports: Hx Contacts or Glasses Denies: Hx Hearing Aid Opthamlomology History: Reports: Hx Contacts or Glasses Neurological History: Denies: Other Neuro Impairments/Disorders Psychiatric History: Reports: Hx Anxiety Denies: Hx Inpatient Treatment, Hx Suicide Attempt, Hx of Violent Episodes Against Others, Hx Substance Abuse - Cancer History Cancer Type, Location and Year: basal cell ca - Surgical History Surgery Procedure, Year, and Place: Bone tumor removed left pelvis- benign 1972. Stentx2 2011-by Dr Allred @ [facility] [place]. ICD placed 2011 @ [facility] [place], NEW DEFIBRILLATOR PLACED 02/27/2018- [facility] Hx Anesthesia Reactions: No Infectious Disease History: No Infectious Disease History: Denies: Traveled Outside the [place] in Last 30 Days - Family History Known Family History: Positive: Cardiac Disease, Other - Dementia (mother) - Social History Alcohol Use: Rare Hx Substance Use: No Substance Use Type: Reports: None Hx Tobacco Use: Yes Smoking Status (MU): Former Smoker Review of Systems Positive: Skin Diaphoresis Positive: Other - Hypotension- resolved Neurological: Other - Light-headedness Positive: Weakness, Syncope - Near-Syncope All Other Systems Reviewed And Are Negative: Yes Physical Exam - Summary Physical Exam Summary: Appearance: The patient is well-nourished in no acute distress and in no acute pain. Skin: The skin is warm and dry and skin color reflects adequate perfusion. HEENT: The head is normocephalic and atraumatic. The pupils are equal and reactive. The conjunctivae are clear and without drainage. Nares are patent and without drainage. Mouth reveals moist mucous membranes and the throat is without erythema and exudate. The external ears are intact. The ear canals are patent and without drainage. The tympanic membranes are intact. Neck: The neck is supple with full range of motion and non-tender. There are no carotid bruits. There is no neck vein distension. Respiratory: Chest is non-tender. Lungs are clear to auscultation and breath sounds are symmetrical and equal. Cardiovascular: Heart is regular rate and rhythm. There is no murmur or rub auscultated. There is no peripheral edema and pulses are symmetrical and equal. Abdomen: The abdomen is soft and non-tender. There are normal bowel sounds heard in all four quadrants and there is no organomegaly palpated. Musculoskeletal: There is no back tenderness noted. Extremities are non-tender with full range of motion. There is good capillary refill. There is no peripheral edema or calf tenderness elicited. Neurological: Patient is alert and oriented to person, place and time. The patient has symmetrical motor strength in all four extremities. Cranial nerves are grossly intact. Deep tendon reflexes are symmetrical and equal in all four extremities. Psychiatric: The patient has an appropriate affect and does not exhibit any anxiety or depression. Triage Information Reviewed: Yes Vital Signs On Initial Exam: Initial Vitals Temp Pulse Resp BP Pulse Ox 97.9 F 60 17 136/81 97 06/05/18 10:27 06/05/18 10:27 06/05/18 10:27 06/05/18 10:27 06/05/18 10:27 Vital Signs Reviewed: Yes Diagnostics - Vital Signs Vital Signs Temp Pulse Resp BP Pulse Ox 06/05/18 10:49 60 18 145/91 98 06/05/18 10:31 61 10 97 06/05/18 10:27 97.9 F 60 17 136/81 97 - Laboratory Result Diagrams: 06/05/18 11:19 06/05/18 11:19 Lab Statement: Any lab studies that have been ordered have been reviewed, and results considered in the medical decision making process. - Radiology CXR Radiology Interpretation Completed By: Radiologist Summary of Radiographic Findings: No active cardiopulmonary disease. ED Provider has reviewed this report. - EKG 1045 Cardiac Rate: NL EKG Rhythm: Sinus Rhythm - [address] Segment: Normal Ectopy: None Summary of EKG Findings: Normal sinus rhythm, normal ST, no ectopy, old inferior infarct. Transthoracic EKG 1610 Summary of EKG Findings: There is scarring/thinning of the basal inferolateral and basal inferiorwall segments (score 5). The left ventricular size is mild to moderately dilated. Abnormal left ventricular diasolic filling is observed, consistent with impaired relaxation. The left atrium is moderately dilated. The right ventricle is mildly dilated. The right ventricular global systolic function is low normal. The right atrium is moderately dilated. Functionally benign heart valves. No significant pericardial effusion. There is mild dilatation of the aortic root. Tehre is mild dilatation of the ascending aorta. Since the prior echocardiogram completed 05/31/18 there is no signficant change. Wagner Flores MD produced, signed, and discussed results of the report with the ED Provider. ED Provider has reviewed this report. Re-Evaluation - Re-Evaluation First Eval Re-Evaluation Time: 15:37 Comment: Discussed results and plan with patient. Second Eval Re-Evaluation Time: 19:01 Comment: Discussed results and plan with patient. Dizzy Course/Dx - Course Course Of Treatment: Mr. Luogn has a history of V. tach for which she's had a complicated course. He has a pacer/ICD and has undergone ablation twice. The most recent ablation was 9 days ago in [place]. He's been feeling some anterior chest sensations/palpitations subsequently and made an appointment to be evaluated by Dr. Morrison this morning. Reportedly Dr. Morrison interrogated his pacer and that was fine. However the patient had an episode in the office of near syncope where his blood pressure dropped. He was given normal saline and the ambulance was called for transfer. I believe he was on a monitor and did not have a dysrhythmia at that time. The patient is very concerned about his palpitations because of his ICD going off in the past. 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 This kept on a monitor here while EKG and labs were obtained. He did continue to be symptomatic here and was noted to have 2 short episodes of runs of V. tach less than 6 beats. However if for any frequently he had PVCs followed by a positive which was offered long enough that his pacer took over for a few beats. I'm inclined to believe that is the latter that he has been feeling as he has felt the palpitations many times in the ED and only had a short runs of V. tach a few times. He is on amiodarone to try to prevent the V. tach. I reviewed the situation with Dr. Flores who felt that he was safe for discharge. Patient was very concerned and I attempted to contact the physician who performed the ablation. I spoke with his nurse practitioner who recommended an echocardiogram and discharge if there was no pericardial effusion. They're willing to follow him up. Patient was continuing to be very anxious and was given some Ativan and an echocardiogram was performed which was negative. He was discharged with a short prescription for Xanax until he get follow-up first of the week. - Diagnoses Provider Diagnoses: PVCs (premature ventricular contractions), Palpitations - Provider Notifications Discussed Care Of Patient With: Wagner K Flores - Cardiology. Discussed plan with patient. Discharge - Sign-Out/Discharge Documenting (check all that apply): Patient Departure - Discharge Patient Received Moderate/Deep Sedation with Procedure: No - Discharge Plan Condition: Stable Disposition: HOME Prescriptions: ALPRAZolam TAB* [Xanax TAB*] 0.25 mg PO Q6H PRN #20 tab MDD 4 PRN Reason: Anxiety Patient Education Materials: Heart Palpitations (ED) Referrals: Brian Gonzalez MD [Primary Care Provider] - Additional Instructions: Call your Land Manager to schedule an appointment in 3 days. Return to ED with any new or worsening symptoms. - Billing Disposition and Condition Condition: STABLE Disposition: Home - Attestation Statements Document Initiated by Angeline: Yes Documenting Scribe: Amilcar Rich Provider For Whom Angeline is Documenting (Include Credential): Nicholas Alfonso MD Scribe Attestation: Amilcar Pate scribed for Nicholas Alfonso MD on 06/05/18 at 1932. Scribe Documentation Reviewed: Yes Provider Attestation: The documentation as recorded by the Amilcar cornelius accurately reflects the service I personally performed and the decisions made by me, Nicholas Alfonso MD Status of Scribe Document: Viewed
[2018-06-05 11:30] LABS: ABS Basophils 0.1 10^3/ul (0-0.2); ABS Eosinophils 0.1 10^3/ul (0-0.6); ABS Lymphocytes 1.2 10^3/ul (1.0-4.8); ABS Monocytes 0.7 10^3/ul (0-0.8); ABS Neutrophils 7.8 10^3/ul (1.5-7.7); ABS Nucleated RBC 0 10^3/ul; Eosinophil % 0.6 %; Hematocrit 40 % (36-46); Hemoglobin 13.5 g/dL (14.0-18.0); Lymphocyte % 12.2 %; Mean Corpuscular HGB Conc 34 g/dL (31-36); Mean Corpuscular Hemoglobin 33 pg (27-31); Mean Corpuscular Volume 95 fL (80-94); Mean Platelet Volume 8.8 fL (7.4-10.4); Nucleated Red Blood Cells % 0; Platelet Count 183 10^3/uL (150-450); Red Blood Count 4.16 10^6 /uL (4.18-5.48); Red Cell Distribution Width 13 % (10.5-15); White Blood Count 9.8 10^3/uL (3.5-10.8)
[2018-06-05 11:35] LABS: INR 1.06 (0.77-1.02)
[2018-06-05 11:49] LABS: Albumin 3.5 g/dL (3.2-5.2); Albumin/Globulin Ratio 1.6 (1-3); BUN/Creatinine Ratio 18.5 (8-20); Calcium 8.5 mg/dL (8.6-10.3); EGFR African American 73.1 (>60); EGFR Non-African American 60.4 (>60); Globulin 2.2 g/dL (2-4); Magnesium 1.8 mg/dL (1.9-2.7); Potassium 4.4 mmol/L (3.5-5.0); Total Bilirubin 0.7 mg/dL (0.2-1.0); Total Protein 5.7 g/dL (6.4-8.9)
[2018-06-05 11:51] LABS: Troponin I 0.03 ng/mL (<0.04)
[2018-06-05 12:17] LABS: TSH (Thyroid Stimulating Horm) 1.58 mcIU/mL (0.34-5.60)
[2018-06-05 13:05] LABS: Urine Appearance Clear; Urine Bilirubin Negative (Negative); Urine Blood Negative (Negative); Urine Color Yellow; Urine Glucose Negative (Negative); Urine Ketones Negative (Negative); Urine Nitrite Negative (Negative); Urine Protein Negative (Negative); Urine Specific Gravity 1.013 (1.010-1.030); Urine Urobilinogen Negative (Negative)
[2018-06-05] MEDS ORDERED: LORazepam TAB(*) 1 MG PO ONE (17:36)
--- NOTE | 2018-06-05 18:19 | ECHO ---
Patient: Nima MORATAYA [facility] Rec#: [id number] : 1950 Date: 06/05/2018 Age: 68y Height: 183 cm / 72.0 in Weight: 96 kg / 211.6 lbs Sex: M BSA: 2.18 Room#: [id number] Admit Date#: 06/05/2018 Type: Inpatient Referring: Nicholas Alfonso MD Reading: Wagner Flores MD Sharepoint Application Developer: Bernice Ambrocio RDCS CC: Pati Jamison MD CC: Brian Gonzalez MD Transthoracic Echocardiogram Indication: Syncope BP: 140/83 HR: 83 Rhythm: Paced Findings History: CAD, WI, VT, s/p ICD and ablation, HTN, HLD. Technical Comments: The study quality is fair. Completed at 1715. Left Ventricle: The left ventricular size is mild to moderately dilated. There are multiple regional wall motion abnormalities. There is mildly decreased left ventricular systolic function. The estimated ejection fraction is 40-45%. Abnormal left ventricular diastolic filling is observed, consistent with impaired relaxation. The mid anterolateral, mid inferolateral, and mid inferior wall segments are hypokinetic (score 2). The basal anterolateral wall segment is akinetic (score 3). There is scarring/thinningof the basal inferolateral, and basal inferiorwall segments (score 5). Overall wallmotion score index is 3.17 Left Atrium: The left atrium is moderately dilated. Right Ventricle: Moderator Band present. The right ventricle is mildly dilated. The right ventricular global systolic function is low normal. A pacemaker wire is visualized in the right ventricle. Right Atrium: The right atrium is moderately dilated. A pacemaker wire is visualized in the right atrium. Aortic Valve: The aortic valve is trileaflet. The aortic valve leaflets are mildly thickened. There is trace to mild aortic regurgitation. There is no evidence of aortic stenosis. Mitral Valve: There is mitral annular calcification. The mitral valve leaflets are mildly thickened. There is a trace of mitral regurgitation. Tricuspid Valve: The tricuspid valve leaflets are normal. There is trace tricuspid regurgitation. The right ventricular systolic pressure is estimated at 31 mmHg. No pulmonary hypertension is noted. Pulmonic Valve: The pulmonic valve appears normal. There is a trace pulmonic regurgitation. There is no pulmonic stenosis. Pericardium: There is no significant pericardial effusion. Aorta: There is mild dilatation of the ascending aorta. There is no dilatation of the aortic arch. There is mild dilatation of the aortic root. Pulmonary Artery: The main pulmonary artery appears normal. Venous: The venous system is not well visualized. The inferior vena cava is not visualized. Conclusions There is mildly decreased left ventricular systolic function. The estimated ejection fraction is 40-45%. There are multiple regional wall motion abnormalities. The mid anterolateral, mid inferolateral, and mid inferior wall segments are hypokinetic (score 2).The basal anterolateral wall segment is akinetic (score 3). There is scarring/thinningof the basal inferolateral, and basal inferiorwall segments (score 5). The left ventricular size is mild to moderately dilated. Abnormal left ventricular diastolic filling is observed, consistent with impaired relaxation. The left atrium is moderately dilated. The right ventricle is mildly dilated. The right ventricular global systolic function is low normal. The right atrium is moderately dilated. Functionally benign heart valves. No significant pericardial effusion. There is mild dilatation of the aortic root. There is mild dilatation of the ascending aorta. Since the prior echocardiogram completed 05/21/18, there is no significant change. Results discussed with the ordering physician, Dr. Alfonso. Measurements Name Value Normal Range RVIDd (AP) 2D 3.6 cm (0.9 - 2.6) RVDdMajor (2D) 4.5 cm (2.2 - 4.4) RAd ISD 4CH 5.7 cm (3.4 - 4.9) RA (A4C)W 5.8 cm (2.9 - 4.6) IVSd (2D) 1.1 cm (0.6 - 1) LVPWd (2D) 0.6 cm (0.6 - 1) LVIDd (2D) 6.1 cm (3.6 - 5.4) LVIDs (2D) 5.9 cm - LV FS (2D) 3 % (25 - 45) Aortic Annulus 2.3 cm (1.4 - 2.6) Ao root diameter (2D) 3.9 cm (2.1 - 3.5) Ascending Ao 3.9 cm (2.1 - 3.4) Aortic arch 2.5 cm (1.8 - 3.4) LA dimension (AP) 2D 4.4 cm (2.3 - 3.8) LAd ISD 4CH 6.5 cm (2.9 - 5.3) LA ISD 4CH W 5.2 cm (2.5 - 4.5) Name Value Normal Range LA ESV BP (A/L) index 44 ml/m2 - Name Value Normal Range MV E-wave Vmax 0.5 m/sec - MV deceleration time 236 msec - MV A-wave Vmax 1 m/sec - MV E:A ratio 0.5 ratio - LV septal e' Vmax 0.06 m/sec - LV lateral e' Vmax 0.04 m/sec - LV E:e' septal ratio 8.3 ratio - LV E:e' lateral ratio 12.5 ratio - Name Value Normal Range AV Vmax 1.1 m/sec - AV VTI 26 cm - AV peak gradient 4 mmHg - AV mean gradient 3 mmHg - LVOT Vmax 0.6 m/sec - LVOT VTI 15 cm - LVOT peak gradient 2 mmHg - LVOT mean gradient 1 mmHg - AR PHT 550 msec - KYREE Vmax 0.8 m/sec - Name Value Normal Range TR Vmax 2.4 m/sec - TR peak gradient 23 mmHg - RAP 8 mmHg - RVSP 31 mmHg - Name Value Normal Range PV Vmax 0.9 m/sec - PV peak gradient 3 mmHg - Wallmotion BAS Not Seen BA Not Seen BAL Akinetic FRANSISCA Scarring/Thinning BI Scarring/Thinning BIS Not Seen MAS Not Seen MA Not Seen MAL Hypokinetic MIL Hypokinetic WI Hypokinetic MIS Not Seen Not Seen AA Not Seen AL Not Seen AI Not Seen APEX Not Seen
[2018-06-05 19:23] VITALS: BP 119/74
== END 2018-06-05 19:15 | disposition home or self-care (01) ==
LOC: ED 10:19
DX: I49.3 Ventricular premature depolarization (principal); R00.2 Palpitations; R42 Dizziness and giddiness; R53.1 Weakness; R55 Syncope and collapse; I25.10 Atherosclerotic heart disease of native coronary artery without angina pectoris; I25.2 Old myocardial infarction; I10 Essential (primary) hypertension; Z95.5 Presence of coronary angioplasty implant and graft; Z95.810 Presence of automatic (implantable) cardiac defibrillator; F41.9 Anxiety disorder, unspecified; Z87.891 Personal history of nicotine dependence
CPT/HCPCS: 36415; 71045; 80053; 81003; 83605; 83735; 84443; 84484; 85025; 85610; 93005; 93306; 99284; A9270-GY

== ENCOUNTER 2018-06-20 22:53 | Emergency (ER) | payer BC, OTHER ==
--- OUTSIDE RECORDS SUMMARY | 2018-06-20 23:00 | XMS REPORT | Continuity of Care Document ---
:1950 External Reference #:[id number] Author Name Padmini Winter Care Team Providers Name Role Phone Brian Gonzalez MD Primary Care Physician Unavailable Payers Date Identification Numbers Payment Provider Subscriber Policy Number: [id number] [facility] Nima Luong PayID: [id number] [address] [place] [address] Advance Directives Description No Information Available Problems Date Description Provider Status Onset: 05/05/2013 Paroxysmal ventricular tachycardia Nathanael Allred M.D., [facility] , Active [facility] Onset: 05/05/2013 Chronic ischemic heart disease Nathanael Allred M.D., [facility], Active [facility] Onset: 05/05/2013 Essential hypertension Nathanael Allred M.D., [facility], Active [facility] Onset: 05/05/2013 Hyperlipidemia Nathanael Allred M.D., [facility], Active [facility] Onset: 10/18/2015 Chest pain Nathanael Allred M.D., [facility], Active [facility] Onset: 02/20/2016 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., [facility], 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 Family History Date Family Member(s) Observation Comments General No Current Problems Father Hypertension Father due to Unknown Causes () Mother due to old age () Siblings 3 all healthy Social History Type Date Description Comments Sex Unknown Marital Status 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 Allergies, Adverse Reactions, Alerts Description No Known Drug Allergies Medications Medication Date Status Form Strength Qnty SIG Indications Ordering Provider Carvedilol 04/08/ Active Tablets 25mg 180tab 1 tab by I25.5 Abhi 2019 s mouth D. Brand, twice a M.D. day Spironolactone / Active Tablets 12.5mg 30tabs 1/4 tablet Unknown 0000 po qd Losartan / Active Tablets 100mg 90tabs 1 tablet Unknown Potassium 0000 po qd Aspirin / Active Tablets 81mg 30tabs 1 po qd Unknown [address] Bupropion HCL ER / Active Tablets 150mg 180tab 1 by mouth Unknown (SR) 0000 ER 12HR s a day Mirtazapine / Active Tablets 30mg 30tabs 1 tab po Unknown 0000 hs Zolpidem / Active Tablets 10mg 30tabs daily as Unknown Tartrate 0000 needed Nitroglycerin / Active 0.4mg 1 SL tab Unknown 0000 po as needed Hydrocodone-Acet / Active Tablets 10-325mg 1 tab by Unknown aminophen 0000 mouth every 6 hours as needed ( not taking now) Norvasc 02/06/ Hx Tablets 5mg 1 by mouth Unknown 2018 - every day 04/07/ 2019 verify dosage Atorvastatin 00/00/ Hx Tablets 80mg 1 po qd Unknown Calcium 0000 - 2013 Nadolol /00/ Hx Tablets 20mg 90tabs 1/4 tab Unknown 0000 - po daily 2017 Clopidogrel /00/ Hx Tablets 75mg 30tabs 1 po qd Unknown 0000 - 2015 Atorvastatin 00/00/ Hx Tablets 40mg 1 po qd Unknown Calcium 0000 - 2017 Acetaminophen-Co 00/ Hx Tablets 300-30mg 30tabs as needed Unknown deine #3 0000 - 2017 Diazepam /00/ Hx Tablets 2mg 6tabs 2 tablet Unknown 0000 - po q 8 hrs 06/30/ as needed 2017 Oxycodone-Acetam 00/ Hx Tablets 5-325mg 80tabs take 1 to Unknown inophen 0000 - 2 tablets 02/06/ by mouth 2014 every 6 to 8 hours as needed pain Polyethylene 00/00/ Hx 17 g po Unknown Glycol 0000 - daily 2015 Excedrin Extra / Hx Tablets 250-250-65 for Unknown Strength 0000 - mg headache 2017 Diazepam / Hx Tablets 2mg 1 by mouth Unknown 0000 - as needed 01/03/ 2018 anxiety Carvedilol / Hx Tablets 3.125mg 2 tabs by Unknown 0000 - mouth 03/06/ twice a 2017 day Amlodipine / Hx Tablets 2.5mg 1 by mouth Unknown Besylate 0000 - every day 2018 Carvedilol / Hx Tablets 12.5mg 1 by mouth Unknown 0000 - twice a 2018 Immunizations Description No Information Available Vital Signs Date Vital Result Comment 06/05/2018 9:23am Height 72 inches 6'0" Heart Rate 59 /min BP Systolic Sitting 90 mmHg Rue reg cuff BP Diastolic Sitting 62 mmHg Rue reg cuff BP Systolic Standing 88 mmHg Rue reg cuff BP Diastolic Standing 60 mmHg Rue reg cuff BP Systolic Lying Down 90 mmHg Lue reg cuff BP Diastolic Lying Down 60 mmHg Lue reg cuff Respiratory Rate 14 /min 04/08/2018 3:14pm Height 72 inches 6'0" Weight 215.00 lb Heart Rate 64 /min BP Systolic Sitting 145 mmHg Lue reg cuff BP Diastolic Sitting 90 mmHg Lue reg cuff BP Systolic Standing 140 mmHg Lue reg cuff BP Diastolic Standing 87 mmHg Lue reg cuff Respiratory Rate 17 /min O2 % BldC Oximetry 97 % BMI (Body Mass Index) 29.2 kg/m2 03/18/2018 3:41pm Height 72 inches 6'0" Weight 213.00 lb Heart Rate 60 /min BP Systolic Sitting 130 mmHg BP Diastolic Sitting 80 mmHg Respiratory Rate 18 /min BMI (Body Mass Index) 28.9 kg/m2 02/24/2018 1:43pm Height 72 inches 6'0" Weight 213.12 lb Heart Rate 80 /min BP Systolic Sitting 140 mmHg BP Diastolic Sitting 76 mmHg BMI (Body Mass Index) 28.9 kg/m2 2018 3:36pm Height 72 inches 6'0" Weight 214.00 lb BP Systolic Sitting 124 mmHg BP Diastolic Sitting 80 mmHg Pain Level 6 BMI (Body Mass Index) 29.0 kg/m2 02/13/2018 3:47pm Height 72 inches 6'0" Weight 214.00 lb with shoes Heart Rate 70 /min BP Systolic Sitting 150 mmHg Lue reg cuff BP Diastolic Sitting 104 mmHg Lue reg cuff BP Systolic Standing 150 mmHg Lue reg cuff BP Diastolic Standing 110 mmHg Lue reg cuff Respiratory Rate 18 /min BMI (Body Mass Index) 29.0 kg/m2 01/28/2018 2:25pm Height 72 inches 6'0" Weight 216.00 lb Heart Rate 73 /min BP Systolic 149 mmHg BP Diastolic 98 mmHg Respiratory Rate 16 /min BMI (Body Mass Index) 29.3 kg/m2 01/07/2018 3:43pm Height 71.50 inches 5'11.50" Weight 216.00 lb w/ shoes Heart Rate 80 /min BP Systolic Sitting 154 mmHg Lue Reg Cuff BP Diastolic Sitting 80 mmHg Lue Reg Cuff BP Systolic Standing 156 mmHg Lue Reg Cuff BP Diastolic Standing 82 mmHg Lue Reg Cuff BMI (Body Mass Index) 29.7 kg/m2 Ejection Fraction 40-45% ECHO 03/29/11 10/01/2017 8:09am Height 71.50 inches 5'11.50" Weight 216.00 lb w/ shoes Heart Rate 64 /min BP Systolic Sitting 124 mmHg lue regg cuff BP Diastolic Sitting 94 mmHg lue regg cuff BP Systolic Standing 124 mmHg lue regg cuff BP Diastolic Standing 88 mmHg lue regg cuff Respiratory Rate 18 /min BMI (Body Mass Index) 29.7 kg/m2 Ejection Fraction 59% stress test 09/08/2017 07/16/2017 3:33pm Height 71.50 inches 5'11.50" Weight 217.00 lb w/ shoes Heart Rate 68 /min BP Systolic Sitting 152 mmHg lue lg cuff BP Diastolic Sitting 90 mmHg lue lg cuff BP Systolic Standing 154 mmHg lue lg cuff BP Diastolic Standing 88 mmHg lue lg cuff Respiratory Rate 18 /min BMI (Body Mass Index) 29.8 kg/m2 Ejection Fraction 57% stress stress test 02/05/16 07/01/2017 2:29pm Height 71.50 inches 5'11.50" Weight 221.00 lb w/ shoes Heart Rate 94 /min BP Systolic Sitting 134 mmHg lue large cuff BP Diastolic Sitting 84 mmHg lue large cuff BP Systolic Standing 128 mmHg lue large cuff BP Diastolic Standing 84 mmHg lue large cuff Respiratory Rate 18 /min BMI (Body Mass Index) 30.4 kg/m2 Ejection Fraction 40-45% 03/29/11 02/20/2016 2:35pm Height 71.50 inches 5'11.50" Weight 217.00 lb Heart Rate 64 /min 70 BP Systolic Sitting 126 mmHg right arm, reg cuff BP Diastolic Sitting 86 mmHg right arm, reg cuff BP Systolic Standing 114 mmHg right arm, reg cuff BP Diastolic Standing 84 mmHg right arm, reg cuff Respiratory Rate 16 /min BMI (Body Mass Index) 29.8 kg/m2 Ejection Fraction 57% 02/05/16 Nem 10/18/2015 3:27pm Height 71.50 inches 5'11.50" Weight 222.00 lb Heart Rate 54 /min 60 BP Systolic Sitting 126 mmHg right arm, reg cuff BP Diastolic Sitting 86 mmHg right arm, reg cuff BP Systolic Standing 124 mmHg right arm, reg cuff BP Diastolic Standing 86 mmHg right arm, reg cuff Respiratory Rate 16 /min BMI (Body Mass Index) 30.5 kg/m2 Ejection Fraction 40-45% 03/29/11 02/07/2015 2:57pm Height 71.50 inches 5'11.50" Weight 212.00 lb Heart Rate 60 /min 60 BP Systolic Sitting 106 mmHg right arm, reg cuff BP Diastolic Sitting 82 mmHg right arm, reg cuff BP Systolic Standing 102 mmHg right arm, reg cuff BP Diastolic Standing 80 mmHg right arm, reg cuff Respiratory Rate 16 /min BMI (Body Mass Index) 29.2 kg/m2 Ejection Fraction 40% 03/29/11 07/05/2014 1:49pm Height 71.50 inches 5'11.50" Weight 209.00 lb Heart Rate 68 /min 72 BP Systolic Sitting 122 mmHg left arm, reg cuff BP Diastolic Sitting 86 mmHg left arm, reg cuff BP Systolic Standing 108 mmHg left arm, reg cuff BP Diastolic Standing 80 mmHg left arm, reg cuff Respiratory Rate 16 /min BMI (Body Mass Index) 28.7 kg/m2 12/14/2013 3:16pm Height 71.50 inches 5'11.50" Weight 213.00 lb with out shoes Heart Rate 70 /min BP Systolic Sitting 100 mmHg La reg cuff BP Diastolic Sitting 70 mmHg La reg cuff BP Systolic Standing 100 mmHg La reg cuff BP Diastolic Standing 66 mmHg La reg cuff Respiratory Rate 16 /min BMI (Body Mass Index) 29.3 kg/m2 05/05/2013 3:13pm Height 72.5 inches 6'0.50" Weight 221.00 lb Heart Rate 68 /min BP Systolic Sitting 146 mmHg Ra, reg cuff BP Diastolic Sitting 92 mmHg Ra, reg cuff BP Systolic Standing 138 mmHg BP Diastolic Standing 92 mmHg Respiratory Rate 16 /min BMI (Body Mass Index) 29.6 kg/m2 Results Test Date Facility Test Result H/L Range Note Laboratory test 04/07/2018 [facility] Magnesium 2.1 mg/dL N 1.9-2.[address] [place] [address] [phone] Basic Metabolic 04/07/2018 [facility] Sodium 142 mmol/L N 135- [address] [place] [address] [phone] Potassium 4.4 mmol/L N 3.5-5.0 Chloride 109 mmol/L N 101-111 Co2 Carbon Dioxide 28 mmol/L N 22-32 Anion Gap 5 mmol/L N 2-11 Glucose 99 mg/dL N 70-100 Blood Urea Nitrogen 22 mg/dL N 6-24 Creatinine 1.08 mg/dL N 0.67-1.17 BUN/Creatinine Ratio 20.4 High 8-20 Calcium 9.4 mg/dL N 8.6-10.3 Egfr Non- 67.6 >60 Egfr 81.8 >60 1 1 Because ethnic data is not always readily available, this report includes an eGFR for both -Americans and non- Americans. The National Kidney Disease Education Program (NKDEP) does not endorse the use of the MDRD equation for patients that are not between the ages of 18 and 70, are , have extremes of body size, muscle mass, or nutritional status, or are non- or non-. According to the National Kidney Foundation, irrespective of diagnosis, the stage of the disease is based on the level of kidney function: Stage Description GFR(mL/min/1.73 m(2)) 1 Kidney damage with normal or decreased GFR 90 2 Kidney damage with mild decrease in GFR 60-89 3 Moderate decrease in GFR 30-59 4 Severe decrease in GFR 15-29 5 Kidney failure <15 (or dialysis) Procedures Date Code Description Status 06/05/2018 72868 ECHO Transthorasic Realtime 2D W Doppler & Color Flow Hosp Completed 06/05/2018 68900 EKG Tracing & Interpretation Completed 05/21/2018 48670 ECHO Transthorasic Realtime 2D W Doppler & Color Flow Hosp Completed 05/21/2018 03459 Interrogation Implant Cardiovasc Monitor System Incl Completed Analysis Int 05/21/2018 86460 Icd Eval With Inerative Adjustmt Dual Lead System Completed 05/18/2018 40400 Interrogation Device Eval Remote Up To [address] Completed Analysis,Rev,RP 05/18/2018 07659 Interrogation Device Eval Remote Up To [address] Completed Analysis,Rev,RP 05/18/2018 01998 Icd Eval Sing,Dual,Multi Lead Remote Recpt Transm Tech Rev Completed Tech S 05/18/2018 55928 Icd Check Remote Up To 90 Days Single,Dual,Multiple Lead Completed 05/18/2018 82780 Icd Eval Sing,Dual,Multi Lead Remote Recpt Transm Tech Rev Completed Tech S 05/18/2018 37567 Icd Check Remote Up To 90 Days Single,Dual,Multiple Lead Completed 04/08/2018 50576 EKG Tracing & Interpretation Completed 03/25/2018 89583 Icd Eval With Inerative Adjustmt Dual Lead System Completed 03/25/2018 49270 Icd Eval With Inerative Adjustmt Dual Lead System Completed 02/13/2018 00417 EKG Tracing & Interpretation Completed 11/20/2017 34847 Interrogation Implant Cardiovasc Monitor System Incl Completed Analysis Int 11/20/2017 42070 Interrogation Implant Cardiovasc Monitor System Incl Completed Analysis Int 11/20/2017 30626 Icd eval w/iterative adjment single lead Icd Completed 11/20/2017 72924 Icd eval w/iterative adjment single lead Icd Completed 10/01/2017 57691 EKG Tracing & Interpretation Completed 09/08/2017 36590 Treadmill Interp/Report Only Completed 09/08/2017 30129 Stress Test Supervsn W/Out I/R Completed 09/06/2017 80292 EKG, Interpretation Only Completed 09/06/2017 58210 Icd Eval With Inerative Adjustmt Dual Lead System Completed 07/16/2017 96650 EKG Tracing & Interpretation Completed 07/01/2017 17607 EKG Tracing & Interpretation Completed 02/20/2016 71246 EKG Tracing & Interpretation Completed 02/05/2016 34288 Treadmill Interp/Report Only Completed 02/05/2016 07732 Stress Test Supervsn W/Out I/R Completed 02/05/2016 82582 EKG, Interpretation Only Completed 10/18/2015 37359 EKG Tracing & Interpretation Completed 02/07/2015 55172 EKG Tracing & Interpretation Completed 07/05/2014 50660 EKG Tracing & Interpretation Completed 12/03/2013 99915 EKG, Interpretation Only Completed 05/05/2013 39728 EKG Tracing & Interpretation Completed 11/02/2012 49481 Icd Check Single,Dual Or Multiple In Person W/DR Incl Completed Heart Rhyth 05/20/2012 52067 Holter Monitoring 24 HR New Completed 05/11/2012 39347 Treadmill Interp/Report Only Completed 05/11/2012 47041 Stress Test Supervsn W/Out I/R Completed 05/11/2012 99964 EKG, Interpretation Only Completed 05/10/2012 09939 EKG, Interpretation Only Completed 05/10/2012 14572 EKG, Interpretation Only Completed 05/10/2012 83025 EKG, Interpretation Only Completed 03/06/2012 57633 Icd eval w/iterative adjment single lead Icd Completed 06/01/2008 80257 ECHO Transthorasic Realtime 2D W Doppler & Color Flow Hosp Completed 06/01/2008 70882 EKG, Interpretation Only Completed Encounters Type Date Location Provider Dx Diagnosis Office Visit 06/05/2018 [facility] Abhi Oden I47.2 Ventricular 9:30a Of Stanley Morrison M.D. tachycardia I25.10 [facility] heart disease of samish coronary artery w/o ang pctrs Office Visit 05/25/2018 9:33a [facility] Janie Gilda, I47.2 Ventricular Assoc,pc [employer] tachycardia Hospitalists M79.604 Pain in right leg M79.605 Pain in left leg I25.10 [facility] heart disease of samish coronary artery w/o ang pctrs I10 Essential (primary) hypertension Office Visit 05/24/2018 9:33a [facility] Janie Gilda, I47.2 Ventricular Assoc,pc [employer] tachycardia Hospitalists M79.604 Pain in right leg I25.10 [facility] heart disease of samish coronary artery w/o ang pctrs I10 Essential (primary) hypertension Office Visit 05/24/2018 11:49a [facility] Cristino Torres I25.10 [facility] heart Wilson Gonzalez disease of samish coronary artery w/o ang pctrs I47.2 Ventricular tachycardia M79.606 Pain in leg, unspecified Z95.810 Presence of automatic (implantable) cardiac defibrillator Office Visit 05/23/2018 9:32a [facility] Kim I47.2 Ventricular Assoc,pc [facility], tachycardia Hospitalists [employer] I25.10 [facility] heart disease of samish coronary artery w/o ang pctrs M79.604 Pain in right leg I10 Essential (primary) hypertension Office Visit 05/23/2018 11:48a [facility] Cristino FJerrod I25.10 Aths[facility] heart Wilson Gonzalez disease of samish coronary artery w/o ang pctrs I47.2 Ventricular tachycardia Z95.810 Presence of automatic (implantable) cardiac defibrillator Office [facility] 05/22[facility]2018 [facility]oc,[facility], tachycardia Hospitalists [employer] RE[employer] I25.10 Athscl heart disease of samish coronary artery w/o ang pctrs M79.604 Pain in right leg I10 Essential (primary) hypertension Office Visit 05/22/2018 11:46a [facility] Cristino FJerrod I47.2 Ventricular Eduardo Gonzalez. tachycardia R05 Cough I25.10 Athscl heart disease of samish coronary artery w/o ang pctrs Office Visit 05/21/2018 9:[facility] I47.2 Ventricular Assoc,[facility], tachycardia Hospitalists [employer] I25.10 [facility] heart disease of samish coronary artery w/o ang pctrs I10 Essential (primary) hypertension Office Visit 05/21/2018 10:54a [facility] Cristino FJerrod R42 Dizziness and Eduardo Gonzalez. giddiness I25.10 [facility] heart disease of samish coronary artery w/o ang pctrs I47.2 Ventricular tachycardia Z95.810 Presence of automatic (implantable) cardiac defibrillator R94.31 Abnormal electrocardiogram [ECG] [EKG] I25.2 Old myocardial infarction I42.9 Cardiomyopathy, unspecified Office Visit 05/20/2018 9:31a [facility] Janie Gilda, R42 Dizziness and Assoc,pc [employer] giamarilisiness Hospitalists I25.10 [facility] heart disease of samish coronary artery w/o ang pctrs I10 Essential (primary) hypertension F32.9 Major depressive disorder, single episode, unspecified Office Visit 04/08/2018 3:30p [facility] Abhi Oden I47.2 Ventricular Of Stanley Morrison M.D. tachycardia Z95.810 Presence of automatic (implantable) cardiac defibrillator I25.5 Ischemic cardiomyopathy Office Visit 03/18/2018 3:45p [facility] Abhi Oden I47.2 Ventricular Of Stanley Morrison M.D. tachycardia Z95.810 Presence of automatic (implantable) cardiac defibrillator I25.10 Athscl heart disease of samish coronary artery w/o ang pctrs I25.5 Ischemic cardiomyopathy Office Visit 02/24/2018 1:30p [facility] Abhi Oden I47.2 Ventricular Of Supervisor [employer] AT [facility] Wilson Morrison tachycardia Z95.810 Presence of automatic (implantable) cardiac defibrillator I25.10 Athscl heart disease of samish coronary artery w/o ang pctrs I25.5 Ischemic cardiomyopathy Office Visit 2018 Neuro[facility] Vassilios M47.896 Other 3:30p Services Of Stanley Mckeon MD spondylosis, lumbar region Office Visit 02/13/2018 [facility] Claudia Martinez, I47.2 Ventricular 4:00p Of [employer] N.P. tachycardia Z95.810 Presence of automatic (implantable) cardiac defibrillator I25.10 [facility] heart disease of samish coronary artery w/o ang pctrs Office Visit 01/28/2018 Orthopedic Juan Ulloa, S76.319A Strain of 2:00p Services Of Wilson msl/fasc/tnd post C.M.A. grp at [facility], unsp thigh, init Office Visit 01/07/2018 [place] [facility] Oden I47.2 Ventricular 3:45p Cardiology Of Wilson Morrison tachycardia [facility] Z95.810 Presence of automatic (implantable) cardiac defibrillator I25.10 Aths[facility] heart disease of samish coronary artery w/o ang pctrs Office Visit 10/01/2017 8:15a [facility] Abhi Oden I25.10 [facility] heart Of Stanley Morrison M.D. disease of samish coronary artery w/o ang pctrs I47.2 Ventricular tachycardia Office Visit 09/08/2017 3:30p [facility] Abhi Oden I25.10 [facility] heart Of Stanley Morrison M.D. disease of samish coronary artery w/o ang pctrs I47.2 Ventricular tachycardia I10 Essential (primary) hypertension Office Visit 09/08/2017 10:02a [facility] Steve I21.3 St elevation Assoc,hung Petersen M.D. (Stemi) Hospitalists myocardial infarction of [facility] K21.9 Gastro-esophageal reflux disease without esophagitis I25.2 Old myocardial infarction I47.2 Ventricular tachycardia E78.5 Hyperlipidemia, unspecified E29.1 Testicular hypofunction N52.9 Male erectile dysfunction, unspecified Z86.010 Personal history of colonic polyps Office Visit 09/07/2017 1:47p [facility] Pait Jamison, R07.9 Chest pain, Of [employer] M.D. unspecified I47.2 Ventricular tachycardia R00.1 Bradycardia, unspecified R13.10 Dysphagia, unspecified Office Visit 09/06/2017 12:51p [facility] Pati Jamison, I47.2 Ventricular Of [facility] M.D. tachycardia R07.9 Chest pain, unspecified R42 Dizziness and giddiness I25.10 [facility] heart disease of samish coronary artery w/o ang pctrs I25.2 Old myocardial infarction Z95.810 Presence of automatic (implantable) cardiac defibrillator Office Visit 09/06/2017 10:02a [facility] Steve I25.10 Aths[facility] heart Assoc,hung Petersen M.D. disease of Hospitalists samish coronary artery w/o ang pctrs E78.5 Hyperlipidemia, unspecified I10 Essential (primary) hypertension I21.3 St elevation (Stemi) myocardial infarction of [facility] Office Visit 09/05/2017 [facility] R07.9 Chest pain, 9:55a Assoc,hung Diaz PA unspecified Hospitalists I25.10 Aths[facility] heart disease of samish coronary artery w/o ang pctrs I25.2 Old myocardial infarction I47.2 Ventricular tachycardia I10 Essential (primary) hypertension E78.5 Hyperlipidemia, unspecified Office Visit 07/16/2017 3:40p [facility] Nathanael Allred, I47.2 Ventricular Of [employer] AT [facility], FACC, tachycardia [facility] I25.10 Athscl heart disease of samish coronary artery w/o ang pctrs Office Visit 07/01/2017 2:20p [facility] Nathanael Allred, I47.2 Ventricular Of [employer] AT [facility], FACC, tachycardia [facility] I25.10 Aths[facility] heart disease of samish coronary artery w/o ang pctrs I10 Essential (primary) hypertension E78.5 Hyperlipidemia, unspecified Office Visit 02/20/2016 3:00p [facility] Nathanael Allred, I25.10 Athscl heart Of [employer] AT [facility], [facility], disease [facility] [place] coronary artery w/o ang pctrs I10 Essential (primary) hypertension E78.5 Hyperlipidemia, unspecified Office Visit 02/05/2016 3:25p [facility] Amilcar R07.2 Precordial pain Assoc,hung Jackson M.D. Hospitalists I25.10 [facility] heart disease of samish coronary artery w/o ang pctrs I10 Essential (primary) hypertension E78.00 Pure hypercholesterolemia, unspecified Office Visit 02/04/2016 [facility] Kai Cox R07.2 Precordial pain 3:25p Assoc,hung RAINES M.D. Hospitalists I25.10 Aths[facility] heart disease of samish coronary artery w/o ang pctrs I10 Essential (primary) hypertension E78.00 Pure hypercholesterolemia, unspecified Office Visit 10/18/2015 3:40p [facility] Nathanael Allred, R07.9 Chest pain, Of [employer] AT [facility], [facility], unspecified [facility] E78.5 Hyperlipidemia, unspecified I10 Essential (primary) hypertension I25.9 Chronic ischemic heart disease, unspecified I25.10 [facility] heart disease of samish coronary artery w/o ang pctrs Office Visit 02/07/2015 3:00p [facility] Nathanael Allred, I25.9 Chronic ischemic Of [employer] AT [facility], [facility], heart disease, [facility] unspecified E78.5 Hyperlipidemia, unspecified I10 Essential (primary) hypertension I47.2 Ventricular tachycardia Office Visit 07/05/2014 2:20p [facility] Nathanael Allred, 414.9 Ischemic Heart Of [employer] AT [facility] M.DJerrod, [facility], Disease Chronic [facility] Unspec 272.4 Hyperlipidemia Other Unspec 401.9 Hypertension Unspec 427.1 Paroxysmal Ventricular Tachycardia Office Visit 12/14/2013 3:20p [facility] Nathanael Allred, 414.9 Ischemic Heart Of [employer] AT [facility].D., [facility], Disease Chronic [facility] Unspec 272.4 Hyperlipidemia Other Unspec 401.9 Hypertension Unspec 427.89 Cardiac Dysrhythmia Other Office Visit 12/03/2013 3:14p [facility] Earl Kowalski, 780.2 Syncope & Assoc,pc M.Akshat Collapse Hospitalists 414.9 Ischemic Heart Disease Chronic Unspec 272.4 Hyperlipidemia Other Unspec 401.9 Hypertension Unspec Office Visit 12/03/2013 7:00a Orthopedic Juan Ulloa, 723.4 Brachial Neuritis Services Of Wilson Or Radiculitis NOS C.M.A. 719.41 Pain Joint Shoulder Region Office Visit 12/02/2013 1:10p [facility] Kowals[facility], 780.2 [facility], [facility] 414.9 Ischemic Heart Disease Chronic Unspec 401.9 Hypertension Unspec 272.4 Hyperlipidemia Other Unspec Office Visit 05/05/2013 3:00p [facility] Nathanael Allred 427.1 Paroxysmal Of Supervisor Slashing Department [facility], [facility], Ventricular FSCAI Tachycardia 414.9 Ischemic Heart Disease Chronic Unspec 401.9 Hypertension Unspec 272.4 Hyperlipidemia Other Unspec Office Visit 10/28/2012 4:00p [facility] Nathanael Allred, 414.9 Ischemic Heart Of Supervisor Slashing Department AT [facility] M.Akshat, [facility], Disease Chronic FSCAI Unspec 401.9 Hypertension Unspec Office Visit 07/16/2012 9:00a [facility] Nathanael Allred, 414.9 Ischemic Heart Of [facility] M.D., [facility], Disease Chronic FSCAI Unspec 427.1 Paroxysmal Ventricular Tachycardia 401.9 Hypertension Unspec Office Visit 05/28/2012 8:15a [facility] Nathanael Allred 427.89 Cardiac Of Supervisor Slashing Department AT [facility] M.Akshat, [facility], Dysrhythmia Other [facility]SCAI 414.9 Ischemic Heart Disease Chronic Unspec 427.81 Sinoatrial Node Dysfunction Office Visit 05/12/2012 12:42p [facility] Abhi Oden 427.1 Paroxysmal Of [facility] Wilson Morrison Ventricular Tachycardia 414.9 Ischemic Heart Disease Chronic Unspec 427.89 Cardiac Dysrhythmia Other Office Visit 05/12/2012 4:13p [facility] 780.2 Syncope & Assoc,pc II, M.D. Collapse Hospitalists 427.81 Sinoatrial Node Dysfunction 414.01 Coronary Atherosclerosis [place] 564.1 Irritable Bowel Syndrome Office Visit 05/11/2012 4:13p [facility] 780.2 Syncope & Assoc,pc II, M.D. Collapse Hospitalists 427.81 Sinoatrial Node Dysfunction 414.01 Coronary Atherosclerosis [place] 564.1 Irritable Bowel Syndrome Office Visit 05/11/2012 11:45a [facility] Nathanael Allred, 414.9 Ischemic Heart Of [facility] Wilson, FACC, Disease Chronic FSCAI Unspec 427.89 Cardiac Dysrhythmia Other Office Visit 05/10/2012 [facility] 427.81 Sinoatrial Node 4:12p Assoc,pc II, M.D. Dysfunction Hospitalists 780.2 Syncope & Collapse 414.01 Coronary Atherosclerosis [place] 564.1 Irritable Bowel Syndrome Office Visit 05/10/2012 8:58a [facility] Qutaybeh S. 412 Myocardial Wilson Pryor [facility] Old 780.4 Dizziness & Giddiness 427.81 Sinoatrial Node Dysfunction Office Visit 01/30/2012 1:00p [facility] Nathanael Allred, 414.9 Ischemic Heart Of [facility] Wilson, [facility], Disease Chronic FSCAI Unspec 427.1 Paroxysmal Ventricular Tachycardia Plan of Treatment Future Appointment(s):06/16/2018 10:30 am - Hakan Mckeon MD at [facility] Of [facility]06/17/2018 6:20 am - Remote Device Checks at [facility] Of [facility]06/05/2018 - Abhi Morrison M.D.I47.2 Ventricular [id number] Atherosclerotic heart disease of samish coronary artery with
--- NOTE | 2018-06-20 23:14 | ED ---
Palpitations / Dysrhythmia - HPI Summary HPI Summary: A 68 y/o male brought in by [facility] ambulance presents to [facility] with a chief complaint of intermittent palpitations since his ablation on 05/26/18. He claims that today for every twenty minutes hed have 3-4 seconds where his heart would race fast and he would feel lightheaded. He denies any LOC. He rates his pain as a 0/10 in severity. He claims that on 05/26/18 he fainted and was hospitalized. He has talked with Dr. Morrison, livestock counter, but couldnt get an appointment until 06/23/18. He also reports that his defibrillator discharged on 05/19/18. - History of Current Complaint Time Seen by Provider: 06/20/18 22:58 Hx Obtained From: Patient, Family/Medical Library Assistant, EMS Onset/Duration: Sudden Onset, Lasting Weeks, Still Present Timing: Intermittent Episodes Lasting: - 2-3 seconds Severity Initially: Mild Severity Currently: Mild Character: Fast Aggravating: Nothing Alleviating: Nothing Associated Signs & Symptoms: Lightheadedness - Allergy/Home Medications Allergies/Adverse Reactions: Allergies Allergy/AdvReac Type Severity Reaction Status Date / Time No Known Allergies Allergy Verified 06/20/18 22:59 PMH/Surg Hx/FS Hx/Imm Hx Endocrine/Hematology History: Denies: Hx Anticoagulant Therapy, Hx Blood Transfusions, Hx Diabetes, Hx Anemia Cardiovascular History: Reports: Hx Auto Implanted Cardiovert Defib - ICD 2ND TO V-TACH, Hx Coronary Artery Disease, Hx Hypercholesterolemia, Hx Hypertension , Hx Myocardial Infarction, Hx Pacemaker/ICD, Hx Syncope, Other Cardiovascular Problems/Disorders - ERECTILE DYSFUNCTION Denies: Hx Angina, Hx Angioplasty, Hx Cardiac Arrest, Hx Cardiomegaly, Hx Congestive Heart Failure, Hx Valvular Heart Disease Respiratory History: Reports: Hx Pneumonia - ONCE Denies: Hx Asthma, Hx Chronic Obstructive Pulmonary Disease (COPD) GI History: Reports: Hx Irritable Bowel Denies: Other GI Disorders History: Reports: Hx Benign Prostatic Hyperplasia, Hx Kidney Stones - 2-3 times, last time 2008, Other Problems/Disorders - slightly enlarged prostate Musculoskeletal History: Reports: Hx Tendonitis - wrists, arms at times painful , Other Musculoskeletal History - "generalized aches and pains of aging" Sensory History: Reports: Hx Contacts or Glasses Denies: Hx Hearing Aid Opthamlomology History: Reports: Hx Contacts or Glasses Neurological History: Denies: Other Neuro Impairments/Disorders Psychiatric History: Reports: Hx Anxiety Denies: Hx Inpatient Treatment, Hx Suicide Attempt, Hx of Violent Episodes Against Others, Hx Substance Abuse - Cancer History Cancer Type, Location and Year: basal cell ca - Surgical History Surgery Procedure, Year, and Place: Bone tumor removed left pelvis- benign 1972. Stentx2 2011-by Dr Allred @ [facility] [place]. ICD placed 2011 @ [facility] [place], NEW DEFIBRILLATOR PLACED 02/27/2018- [facility] Hx Anesthesia Reactions: No Infectious Disease History: No Infectious Disease History: Denies: Traveled Outside the [place] in Last 30 Days - Family History Known Family History: Positive: Cardiac Disease, Other - Dementia (mother) - Social History Alcohol Use: Rare Hx Substance Use: No Substance Use Type: Reports: None Hx Tobacco Use: Yes Smoking Status (MU): Former Smoker Review of Systems Positive: Palpitations Neurological: Other - positive: lightheadedness Negative: Syncope All Other Systems Reviewed And Are Negative: Yes Physical Exam - Summary Physical Exam Summary: Appearance: Well-appearing, Well-nourished, lying in bed comfortably Skin: Warm, dry, no obvious rash Eyes: sclera anicteric, no conjunctival pallor ENT: mucous membranes moist, pharynx appears normal Neck: Supple, nontender Respiratory: Clear to auscultation, no signs of respiratory distress Cardiovascular: Normal S1, S2. No murmurs. Normal distal pulses in tibial and radial bilaterally. Abdomen: Soft, nontender, normal active bowel sounds present Musculoskeletal: Normal, Strength/ROM Intact Neurological: A&Ox3, awake and alert, mentation is normal, speech is fluent and appropriate Psychiatric: affect is normal, does not appear anxious or depressed Triage Information Reviewed: Yes Vital Signs On Initial Exam: Initial Vitals Temp Pulse Resp BP Pulse Ox 99 F 60 18 148/88 97 06/20/18 22:55 06/20/18 22:55 06/20/18 22:55 06/20/18 22:55 06/20/18 22:55 Vital Signs Reviewed: Yes Diagnostics - Vital Signs Vital Signs Temp Pulse Resp BP Pulse Ox 06/20/18 22:55 99 F 60 18 148/88 97 - Laboratory Result Diagrams: 06/20/18 22:55 06/20/18 22:55 Lab Statement: Any lab studies that have been ordered have been reviewed, and results considered in the medical decision making process. - EKG 23:00 Cardiac Rate: Other Rate - Atrial paced rhythm at 60 bpm Summary of EKG Findings: EKG at 23:00 showed atrial paced rhythm at 60 bpm. Course/Dx - Course Course Of Treatment: A 68 y/o male brought in by [facility] ambulance presents to [facility] with a chief complaint of intermittent palpitations since his ablation on 05/26/18. He claims that today for every twenty minutes hed have 3-4 seconds where his heart would race fast and he would feel lightheaded. The physical exam was unremarkable. Bloodwork and chemistries obtained and are WNL. EKG at 23:00 showed atrial paced rhythm at 60 bpm. In the ED course the patient was given Xanax PO. The patient will be discharged with a prescription for Xanax. Dr. Pryor agrees with discharge. The patient is agreeable with this plan. - Diagnoses Provider Diagnoses: Ventricular tachycardia, Nonsustained paroxysmal ventricular tachycardia - Physician Notifications Discussed Care Of Patient With: Keshia Pryor Time Discussed With Above Provider: 00:54 Instructed by Provider To: Other - Agrees with plan for discharge Discharge - Sign-Out/Discharge Documenting (check all that apply): Patient Departure - DC Patient Received Moderate/Deep Sedation with Procedure: No - Discharge Plan Condition: Good Disposition: HOME Prescriptions: ALPRAZolam TAB* [Xanax TAB*] 0.25 mg PO Q6H #14 tab MDD 1 mg Patient Education Materials: Heart Palpitations (ED), Anxiety (ED) Referrals: Brian Gonzalez MD [Primary Care Provider] - Abhi Morrison MD [Medical Doctor] - - Billing Disposition and Condition Condition: GOOD Disposition: Home - Attestation Statements Document Initiated by Scribe: Yes Documenting Scribe: Nathanael Del Rosario Provider For Whom Angeline is Documenting (Include Credential): Nicholas Styles MD Scribe Attestation: Nathanael Pate, scribed for Nicholas Styles MD on 06/22/18 at 1305. Scribe Documentation Reviewed: Yes Provider Attestation: The documentation as recorded by the Nathanael cornelius accurately reflects the service I personally performed and the decisions made by me, Nicholas Styles MD Status of Scribe Document: Viewed
[2018-06-20 23:25] LABS: ABS Basophils 0 10^3/ul (0-0.2); ABS Eosinophils 0.1 10^3/ul (0-0.6); ABS Lymphocytes 1.9 10^3/ul (1.0-4.8); ABS Monocytes 0.8 10^3/ul (0-0.8); ABS Neutrophils 5.8 10^3/ul (1.5-7.7); ABS Nucleated RBC 0 10^3/ul; Eosinophil % 1.6 %; Hematocrit 42 % (36-46); Hemoglobin 14.4 g/dL (14.0-18.0); Mean Corpuscular HGB Conc 35 g/dL (31-36); Mean Corpuscular Hemoglobin 33 pg (27-31); Mean Corpuscular Volume 94 fL (80-94); Mean Platelet Volume 9.2 fL (7.4-10.4); Nucleated Red Blood Cells % 0; Platelet Count 201 10^3/uL (150-450); Red Blood Count 4.42 10^6 /uL (4.18-5.48); Red Cell Distribution Width 13 % (10.5-15); White Blood Count 8.7 10^3/uL (3.5-10.8)
[2018-06-20 23:45] LABS: Albumin 3.7 g/dL (3.2-5.2); Albumin/Globulin Ratio 1.6 (1-3); BUN/Creatinine Ratio 15.1 (8-20); Calcium 8.9 mg/dL (8.6-10.3); EGFR African American 68.5 (>60); EGFR Non-African American 56.6 (>60); Globulin 2.3 g/dL (2-4); Total Bilirubin 0.4 mg/dL (0.2-1.0)
[2018-06-21] MEDS ORDERED: ALPRAZolam TAB* 0.5 MG PO ONE (00:26)
[2018-06-21 01:26] VITALS: BP 105/74
== END 2018-06-21 01:29 | disposition home or self-care (01) ==
LOC: ED 22:53
DX: I47.2 Ventricular tachycardia (principal); R42 Dizziness and giddiness; I25.10 Atherosclerotic heart disease of native coronary artery without angina pectoris; I10 Essential (primary) hypertension; I25.2 Old myocardial infarction; Z95.5 Presence of coronary angioplasty implant and graft; Z95.810 Presence of automatic (implantable) cardiac defibrillator; N40.0 Benign prostatic hyperplasia without lower urinary tract symptoms; Z87.891 Personal history of nicotine dependence
CPT/HCPCS: 36415; 80053; 85025; 93005; 99283; A9270-GY

== ENCOUNTER 2018-10-03 02:23 | Emergency (ER) | payer BC ==
[2018-10-03] MEDS ORDERED: Meclizine TAB* 12.5 MG PO ONE (02:43)
[2018-10-03] MEDS ORDERED: NS 0.9% 500 ML* 500 ML IV ONE (02:44)
[2018-10-03 03:04] LABS: ABS Basophils 0.1 10^3/ul (0-0.2); ABS Eosinophils 0.1 10^3/ul (0-0.6); ABS Lymphocytes 1.6 10^3/ul (1.0-4.8); ABS Monocytes 0.8 10^3/ul (0-0.8); ABS Neutrophils 5.5 10^3/ul (1.5-7.7); Eosinophil % 0.9 %; Hematocrit 42 % (42-52); Hemoglobin 14.4 g/dL (14.0-18.0); Lymphocyte % 20.3 %; Mean Corpuscular HGB Conc 34 g/dL (31-36); Mean Corpuscular Hemoglobin 32 pg (27-31); Mean Corpuscular Volume 95 fL (80-94); Mean Platelet Volume 8.9 fL (7.4-10.4); Nucleated Red Blood Cells % 0.2; Platelet Count 159 10^3/uL (150-450); Red Blood Count 4.44 10^6 /uL (4.18-5.48); Red Cell Distribution Width 13 % (10-15); White Blood Count 8.1 10^3/uL (3.5-10.8)
[2018-10-03 03:13] LABS: Activated Partial Thrombo Time 33.7 seconds (26.0-38.0); INR 1.04 (0.82-1.09)
[2018-10-03 03:22] LABS: Albumin 3.8 g/dL (3.2-5.2); Albumin/Globulin Ratio 1.7 (1-3); BUN/Creatinine Ratio 14.5 (8-20); EGFR African American 65.5 (>60); EGFR Non-African American 54.1 (>60); Globulin 2.3 g/dL (2-4); Potassium 3.7 mmol/L (3.5-5.0); Total Bilirubin 0.4 mg/dL (0.2-1.0); Total Protein 6.1 g/dL (6.4-8.9)
[2018-10-03 03:24] LABS: Troponin I 0.01 ng/mL (<0.04)
[2018-10-03 04:05] LABS: TSH (Thyroid Stimulating Horm) 2.35 mcIU/mL (0.34-5.60)
[2018-10-03] MEDS ORDERED: LORazepam INJ* 2 MG/ML 1 ML VIAL IV PUSH ONE (04:05)
[2018-10-03] MEDS ORDERED: Lorazepam PYXIS KEY PRN (04:05)
[2018-10-03] MEDS ORDERED: Lorazepam PYXIS KEY ONE ×2 (04:16→04:52)
[2018-10-03 04:23] LABS: Urine Appearance Clear; Urine Bilirubin Negative (Negative); Urine Blood Negative (Negative); Urine Color Straw; Urine Glucose Negative (Negative); Urine Ketones Negative (Negative); Urine Nitrite Negative (Negative); Urine Protein Negative (Negative); Urine Specific Gravity 1.004 (1.010-1.030); Urine Urobilinogen Negative (Negative)
[2018-10-03 05:42] VITALS: BP 136/84
--- NOTE | 2018-10-03 05:45 | ED ---
Dizziness - HPI Summary HPI Summary: The pt is a 68 yr old male presenting to [facility] c/o dizziness beginning 1 hour [employer]. He was lying in bed and felt like he was going to black out, which happened once or twice. He sat up, drank water, and moved his head around, which aggravated his dizziness described as a room spinning sensation. He notes that he felt similar symptoms 6 days ago. He reports feeling a sensation of shock, but denies any nausea. Patient did not experience a syncopal episode. He mentions that he had a cardiac ablation. Patient had a defibrillator placed in 2011 and another one defib lead placed in February 2014. He notes defib fired in may due to an arrhythmia. Patient was placed on amiodarone by Dr. Morrison, his history faculty member. Patient notes that he has been drinking plenty of water. The pt has Hx of CAD, PA, and anxiety. - History Of Current Complaint Chief Complaint: EDDizziness Stated Complaint: FEELING FAINT PER EMS Time Seen by Provider: 10/03/18 02:32 Hx Obtained From: Patient Onset/Duration: Still Present Timing: Hours Character: Room Spinning Aggravating Factor(s): Change In Head Position Associated Signs And Symptoms: Positive: Other: - Dizziness, near syncope. Negative: Nausea - Allergies/Home Medications Allergies/Adverse Reactions: Allergies Allergy/AdvReac Type Severity Reaction Status Date / Time No Known Allergies Allergy Verified 06/20/18 22:59 PMH/Surg Hx/FS Hx/Imm Hx Endocrine/Hematology History: Denies: Hx Anticoagulant Therapy, Hx Blood Transfusions, Hx Diabetes, Hx Anemia Cardiovascular History: Reports: Hx Auto Implanted Cardiovert Defib - ICD 2ND TO V-TACH, Hx Coronary Artery Disease, Hx Hypercholesterolemia, Hx Hypertension , Hx Myocardial Infarction, Hx Pacemaker/ICD, Hx Syncope, Other Cardiovascular Problems/Disorders - ERECTILE DYSFUNCTION Denies: Hx Angina, Hx Angioplasty, Hx Cardiac Arrest, Hx Cardiomegaly, Hx Congestive Heart Failure, Hx Valvular Heart Disease Respiratory History: Reports: Hx Pneumonia - ONCE Denies: Hx Asthma, Hx Chronic Obstructive Pulmonary Disease (COPD) GI History: Reports: Hx Irritable Bowel Denies: Other GI Disorders History: Reports: Hx Benign Prostatic Hyperplasia, Hx Kidney Stones - 2-3 times, last time 2008, Other Problems/Disorders - slightly enlarged prostate Musculoskeletal History: Reports: Hx Tendonitis - wrists, arms at times painful , Other Musculoskeletal History - "generalized aches and pains of aging" Sensory History: Reports: Hx Contacts or Glasses Denies: Hx Hearing Aid Opthamlomology History: Reports: Hx Contacts or Glasses Neurological History: Denies: Other Neuro Impairments/Disorders Psychiatric History: Reports: Hx Anxiety Denies: Hx Inpatient Treatment, Hx Suicide Attempt, Hx of Violent Episodes Against Others, Hx Substance Abuse - Cancer History Cancer Type, Location and Year: basal cell ca - Surgical History Surgery Procedure, Year, and Place: Bone tumor removed left pelvis- benign 1972. Stentx2 2011[place] [facility] [place] 2011 @ [facility] [place], NEW DEFIBRILLATOR PLACED 02/27/2018- [facility] Hx Anesthesia Reactions: No Infectious Disease History: No Infectious Disease History: Denies: Traveled Outside the [place] in Last 30 Days - Family History Known Family History: Positive: Cardiac Disease, Other - Dementia (mother) - Social History Alcohol Use: Rare Hx Substance Use: No Substance Use Type: Reports: None Hx Tobacco Use: Yes Smoking Status (MU): Former Smoker Review of Systems Negative: Nausea Neurological: Other - Positive - Dizziness Negative: Syncope - felt near syncopal but did not experience syncopal episode All Other Systems Reviewed And Are Negative: Yes Physical Exam - Summary Physical Exam Summary: VITAL SIGNS: Reviewed. GENERAL: Patient is a well-developed and nourished male who is lying comfortable in the stretcher. Patient is not in any acute respiratory distress. HEAD AND FACE: No signs of trauma. No ecchymosis, hematomas or skull depressions. No sinus tenderness. EYES: PERRLA, EOMI x 2, No injected conjunctiva, no nystagmus. EARS: Hearing grossly intact. Ear canals and tympanic membranes are within normal limits. MOUTH: Oropharynx within normal limits. NECK: Supple, trachea is midline, no adenopathy, no JVD, no carotid bruit, no c- spine tenderness, neck with full ROM CHEST: Symmetric, no tenderness at palpation LUNGS: Clear to auscultation bilaterally. No wheezing or crackles. CVS: Regular rate and rhythm, S1 and S2 present, no murmurs or gallops appreciated. ABDOMEN: Soft, non-tender. No signs of distention. No rebound no guarding, and no masses palpated. Bowel sounds are normal. EXTREMITIES: FROM in all major joints, no edema, no cyanosis or clubbing. NEURO: Alert and oriented x 3. No acute neurological deficits. Speech is normal and follows commands. Normal coordination, steady gait. Finger to nose intact. SKIN: Dry and warm Triage Information Reviewed: Yes Vital Signs On Initial Exam: Initial Vitals Temp Pulse Resp BP Pulse Ox 98.2 F 60 16 147/85 96 10/03/18 02:24 10/03/18 02:24 10/03/18 02:24 10/03/18 02:24 10/03/18 02:24 Vital Signs Reviewed: Yes Diagnostics - Vital Signs Vital Signs Temp Pulse Resp BP Pulse Ox 10/03/18 04:58 60 10/03/18 04:55 60 143/79 10/03/18 04:03 62 17 143/79 95 10/03/18 04:02 61 19 142/85 94 10/03/18 04:00 18 140/80 10/03/18 03:32 60 17 135/86 95 10/03/18 03:03 14 159/91 10/03/18 03:00 19 10/03/18 02:32 60 20 130/82 95 10/03/18 02:30 60 15 95 10/03/18 02:24 98.2 F 60 16 147/85 96 - Laboratory Lab Results: Lab Results 10/03/18 10/03/18 10/03/18 Range/Units 02:55 02:55 02:55 WBC 8.1 (3.5-10.8) 10^3/uL RBC 4.44 (4.18-5.48) 10^6 /uL Hgb 14.4 (14.0-18.0) g/dL Hct 42 (42-52) % MCV 95 H (80-94) fL MCH 32 H (27-31) pg MCHC 34 (31-36) g/dL RDW 13 (10-15) % Plt Count 159 (150-450) 10^3/uL MPV 8.9 (7.4-10.4) fL Neut % (Auto) 67.8 % Lymph % (Auto) 20.3 % [place] % (Auto) 10.0 % Eos % (Auto) 0.9 % Baso % (Auto) 1.0 % Absolute Neuts (auto) 5.5 (1.5-7.7) 10^3/ul Absolute Lymphs (auto) 1.6 (1.0-4.8) 10^3/ul Absolute Monos (auto) 0.8 (0-0.8) 10^3/ul Absolute Eos (auto) 0.1 (0-0.6) 10^3/ul Absolute Basos (auto) 0.1 (0-0.2) 10^3/ul Absolute Nucleated RBC 0.0 10^3/ul Nucleated RBC % 0.2 INR (Anticoag Therapy) 1.04 (0.82-1.09) APTT 33.7 (26.0-38.0) seconds Sodium 140 (135-145) mmol/L Potassium 3.7 (3.5-5.0) mmol/L Chloride 110 (101-111) mmol/L Carbon Dioxide 27 (22-32) mmol/L Anion Gap 3 (2-11) mmol/L BUN 19 (6-24) mg/dL Creatinine 1.31 H (0.67-1.17) mg/dL Est GFR ( Amer) 65.5 (>60) Est GFR (Non-Af Amer) 54.1 (>60) BUN/Creatinine Ratio 14.5 (8-20) Glucose 101 H (70-100) mg/dL Calcium 9.0 (8.6-10.3) mg/dL Magnesium 2.0 (1.9-2.7) mg/dL Total Bilirubin 0.40 (0.2-1.0) mg/dL AST 14 (13-39) U/L ALT 14 (7-52) U/L Alkaline Phosphatase 53 (34-104) U/L Troponin I 0.01 (<0.04) ng/mL Total Protein 6.1 L (6.4-8.9) g/dL Albumin 3.8 (3.2-5.2) g/dL Globulin 2.3 (2-4) g/dL Albumin/Globulin Ratio 1.7 (1-3) TSH 2.35 (0.34-5.60) mcIU/mL Urine Color Urine Appearance Urine pH (5-9) Ur Specific [place] (1.010-1.030) Urine Protein (Negative) Urine Ketones (Negative) Urine Blood (Negative) Urine Nitrate (Negative) Urine Bilirubin (Negative) Urine Urobilinogen (Negative) Ur Leukocyte Esterase (Negative) Urine Glucose (Negative) 10/03/18 Range/Units 03:45 WBC (3.5-10.8) 10^3/uL RBC (4.18-5.48) 10^6 /uL Hgb (14.0-18.0) g/dL Hct (42-52) % MCV (80-94) fL MCH (27-31) pg MCHC (31-36) g/dL RDW (10-15) % Plt Count (150-450) 10^3/uL MPV (7.4-10.4) fL Neut % (Auto) % Lymph % (Auto) % [place] % (Auto) % Eos % (Auto) % Baso % (Auto) % Absolute Neuts (auto) (1.5-7.7) 10^3/ul Absolute Lymphs (auto) (1.0-4.8) 10^3/ul Absolute Monos (auto) (0-0.8) 10^3/ul Absolute Eos (auto) (0-0.6) 10^3/ul Absolute Basos (auto) (0-0.2) 10^3/ul Absolute Nucleated RBC 10^3/ul Nucleated RBC % INR (Anticoag Therapy) (0.82-1.09) APTT (26.0-38.0) seconds Sodium (135-145) mmol/L Potassium (3.5-5.0) mmol/L Chloride (101-111) mmol/L Carbon Dioxide (22-32) mmol/L Anion Gap (2-11) mmol/L BUN (6-24) mg/dL Creatinine (0.67-1.17) mg/dL Est GFR ( Amer) (>60) Est GFR (Non-Af Amer) (>60) BUN/Creatinine Ratio (8-20) Glucose (70-100) mg/dL Calcium (8.6-10.3) mg/dL Magnesium (1.9-2.7) mg/dL Total Bilirubin (0.2-1.0) mg/dL AST (13-39) U/L ALT (7-52) U/L Alkaline Phosphatase (34-104) U/L Troponin I (<0.04) ng/mL Total Protein (6.4-8.9) g/dL Albumin (3.2-5.2) g/dL Globulin (2-4) g/dL Albumin/Globulin Ratio (1-3) TSH (0.34-5.60) mcIU/mL Urine Color Straw Urine Appearance Clear Urine pH 6.0 (5-9) Ur Specific [place] 1.004 L (1.010-1.030) Urine Protein Negative (Negative) Urine Ketones Negative (Negative) Urine Blood Negative (Negative) Urine Nitrate Negative (Negative) Urine Bilirubin Negative (Negative) Urine Urobilinogen Negative (Negative) Ur Leukocyte Esterase Negative (Negative) Urine Glucose Negative (Negative) Result Diagrams: 10/03/18 02:55 10/03/18 02:55 Lab Statement: Any lab studies that have been ordered have been reviewed, and results considered in the medical decision making process. - EKG 228 Cardiac Rate: Other Rate - Paced rhythm @ 68 BPM. Time is 0229. Re-Evaluation - Re-Evaluation First Eval Re-Evaluation Time: 04:20 Change: Unchanged Comment: Pt was ambulated and had c/o dizziness characterized as room spinning. He was already given 25 ml antivert. Second Eval Re-Evaluation Time: 04:50 Change: Improved Comment: The pt was walking around normally and diagnosed with dizziness, discharged home, and advised to follow up with PCP within 3 days. Dizzy Course/Dx - Course Course Of Treatment: The pt is a 68 yr old male presenting to [facility] c/o dizziness. He reports feeling a sensation of shock, but denies any nausea. The pt has Hx of CAD, PA, and anxiety. An EKG reveals a paced rhythm @ 68 BPM. Test results with no significant abnormalities expect for MCV @ 95, MCH @ 32, Creatinine @ 1.31, Glucose @ 101, Total protein @ 6.1. UA showed Ur Specific [place] @ 1.004. In the ED course the patient was given 25 mg Antivert Tab PO, 500 mls Ns @ 1000 mls/hr IV. The patient was diagnosed with dizziness, discharged, and advised follow up with PCP within 3 days. The patient is agreeable with this plan. - Diagnoses Provider Diagnoses: Dizziness Discharge - Sign-Out/Discharge Documenting (check all that apply): Patient Departure - discharge Patient Received Moderate/Deep Sedation with Procedure: No - Discharge Plan Condition: Stable Disposition: HOME Prescriptions: Meclizine TAB* [Antivert 12.5 TAB*] 25 mg PO TID PRN #20 tab PRN Reason: Dizziness Patient Education Materials: Dizziness (ED) Referrals: Aye Gonzalez MD [Primary Care Provider] - 3 Days Additional Instructions: RETURN TO ED FOR ANY NEW OR WORSENING SYMPTOMS. FOLLOW UP WITH YOUR PRIMARY CARE PHYSICIAN WITHIN THREE DAYS. - Attestation Statements Document Initiated by Scribe: Yes Documenting Scribe: AYE CARVALHO Provider For Whom Scribe is Documenting (Include Credential): ANÍBAL GAINES MD Scribe Attestation: AYE Pate, scribed for ANÍBAL GAINES MD on 10/03/18 at 0631. Status of Scribe Document: Ready
== END 2018-10-03 05:41 | disposition home or self-care (01) ==
LOC: ED 02:23
DX: R42 Dizziness and giddiness (principal); I25.10 Atherosclerotic heart disease of native coronary artery without angina pectoris; E78.00 Pure hypercholesterolemia, unspecified; I10 Essential (primary) hypertension; I25.2 Old myocardial infarction; Z95.810 Presence of automatic (implantable) cardiac defibrillator; Z87.891 Personal history of nicotine dependence
CPT/HCPCS: 36415; 80053; 81003; 83735; 84443; 84484; 85025; 85610; 85730; 93005; 96374; 99283; A9270-GY; J2060